=== PATIENT | female | born 1945 | race Caucasian/White ===

== ENCOUNTER 2022-02-04 09:00 | Inpatient (IN) ==
--- NOTE | 2022-01-30 13:01 | XRay Report ---
INDICATION: pre-op TECHNIQUE: PA and lateral upright chest x-ray COMPARISON: Previous examination dated 12/15/2021 FINDINGS: Lungs: Lungs are negative. No focal pulmonary parenchymal infiltrate or mass Heart, vascular: No significant cardiomegaly. Pulmonary vascularity is normal. No pulmonary edema or pulmonary congestion Mediastinum, mariana: No mediastinal widening. No hilar mass Pleura:No pleural fluid. No pleural-based mass or calcification Thoracic spine, ribs: No thoracic compression fracture. Ribs are negative. No fracture. No lytic lesion IMPRESSION: 1. Negative PA and lateral chest x-ray 2. No significant interval change since 12/15/2021 Interpreted and Authenticated by: Willam Pink 01/30/22
--- NOTE | 2022-01-30 14:37 | EKG ---
[facility] Test Date: 2022-01-30 Pat Name: Margo Fuller Department: RT Room: Gender: Female Supervisor Records Change: : 1945 Requested By: Tom Valladares Order Number: [id number] Reading MD: Kishore Kimble Measurements Intervals [place] Rate: 108 P: 36 FL: 123 QRS: 26 QRSD: 100 T: 45 QT: 342 QTc: 459 Interpretive Statements Sinus tachycardia Probable left atrial enlargement Minimal ST depression, anterolateral leads Electronically Signed On 01-30-2022 14:37:48 PDT by Kishore Kimble /[email or web address]/[id number]
[2022-01-30 16:48] LABS: ALT/SGPT 10 U/L (<40); AST/SGOT 14 U/L (<32); Albumin 3.5 gm/dL (3.2-5.2); Albumin/Globulin Ratio 0.9 (1.0-2.3); Alkaline Phosphatase 109 U/L (39-117); Bilirubin,Total 0.2 mg/dL (0.1-1.0); Blood Urea Nitrogen 10 mg/dL (8-23); Calcium 9.2 mg/dL (8.6-10.4); Carbon Dioxide 26 mmol/L (22-30); Chloride 104 mmol/L (96-108); Glomerular Filtration Rate 62; Glucose 125 mg/dL (70-105); INR 0.9 (0.9-1.1); Prothrombin Time 13.1 sec (11.9-14.5)
[2022-01-30 16:51] LABS: Basophils # (Auto) 0.08 K/mcL (0.00-0.30); Basophils % (Auto) 0.8 % (0.0-2.0); Eosinophils # (Auto) 0.18 K/mcL (0.00-0.70); Eosinophils % (Auto) 1.7 % (0.0-7.0); Hematocrit 46.8 % (34.1-44.9); Hemoglobin 14.8 g/dL (11.2-15.7); Lymphocytes # (Auto) 3.34 K/mcL (1.50-4.80); Lymphocytes % (Auto) 32.3 % (15.5-49.0); Mean Cell Volume 89.7 fL (80.0-100.0); Mean Corpuscular HGB Conc 31.6 g/dL (31.0-36.0); Mean Platelet Volume 10.3 fL (7.4-10.4); Monocytes # (Auto) 0.55 K/mcL (0.10-0.90); Monocytes % (Auto) 5.3 % (1.0-12.0); Neutrophils % (Auto) 59.5 % (38.0-78.0); Platelet Count 221 K/mcL (140-440); RBC 5.22 M/mcL (3.59-5.38); WBC 10.3 K/mcL (4.5-11.0)
[~2022-02-04 09:00] MED LIST: IPRATROPIUM/ALBUTEROL 3 ML AMPUL.NEB NEB PRN; LEVOFLOXACIN 750 MG/150 ML BAG IV SCH; SCOPOLAMINE 1 PATCH PATCH TOPICAL PRN; metroNIDAZOLE 500 MG/100 ML BAG IV SCH
[2022-02-04] MEDS ORDERED: KETAMINE 50 MG/ML Syringe (ANEST) IV ONE (11:48)
[2022-02-04] MEDS ORDERED: ROCURONIUM 10 MG/ML ML IV ONE (11:48)
[2022-02-04] MEDS ORDERED: PROPOFOL 200 MG/20 ML VIAL IV ONE (11:48)
[2022-02-04] MEDS ORDERED: LIDOCAINE W/EPI 2% 20 ML VIAL ONE (11:48)
[2022-02-04] MEDS ORDERED: GLYCOPYRROLATE 0.2 MG/ML VIAL IV ONE (11:48)
[2022-02-04] MEDS ORDERED: ONDANSETRON 4 MG/2 ML VIAL ONE (11:48)
[2022-02-04] MEDS ORDERED: SUGAMMADEX SODIUM 200 MG/2 ML VIAL IV ONE (11:48)
[2022-02-04] MEDS ORDERED: fentaNYL 100 MCG/2 ML VIAL IV ONE (11:48)
[2022-02-04] MEDS ORDERED: DEXAMETHASONE 10 MG/ML VIAL ONE (11:48)
[2022-02-04] MEDS ORDERED: LIDOCAINE HCL/PF 100 MG/5 ML SYRINGE IV ONE (11:48)
[2022-02-04] MEDS ORDERED: MAGNESIUM SULFATE 2 GM/50 ML BAG IV ONE (11:48)
[2022-02-04] MEDS ORDERED: ROPIVACAINE HCL/PF 30 ML VIAL IJ ONE (11:48)
[2022-02-04] MEDS ORDERED: ONDANSETRON 4 MG/2 ML VIAL IV PRN ×2 (14:52→15:22)
[2022-02-04] MEDS ORDERED: MEPERIDINE 50 MG/ML VIAL IM PRN (14:52)
[2022-02-04] MEDS ORDERED: PROMETHAZINE 25 MG/ML VIAL IM PRN (14:52)
[2022-02-04] MEDS ORDERED: METHOCARBAMOL 1,000 MG/10 ML VIAL IV PRN (14:52)
[2022-02-04] MEDS ORDERED: LACTATED RINGERS 250 ML IV PRN (14:52)
[2022-02-04] MEDS ORDERED: HYDROmorphone 0.5 MG/0.5 ML SYRINGE IV PRN (14:52)
[2022-02-04] MEDS ORDERED: morphine 2 MG/ML VIAL IV PRN (14:52)
[2022-02-04] MEDS ORDERED: METOPROLOL TARTRATE 5 MG/5 ML VIAL IV PRN (14:52)
[2022-02-04] MEDS ORDERED: PROMETHAZINE 25 MG/ML VIAL IV PRN (14:52)
[2022-02-04] MEDS ORDERED: IPRATROPIUM/ALBUTEROL 3 ML AMPUL.NEB NEB PRN (14:52)
[2022-02-04] MEDS ORDERED: ACETAMINOPHEN 1,000 MG/100 ML BAG IV ONE (14:52)
[2022-02-04] MEDS ORDERED: MEPERIDINE 25 MG/ML VIAL IV PRN (14:52)
[2022-02-04] MEDS ORDERED: NALOXONE HCL 0.4 MG/ML VIAL IV PRN (14:52)
[2022-02-04] MEDS ORDERED: LACTATED RINGERS 1,000 ML IV SCH (15:00)
--- NOTE | 2022-02-04 15:22 | Brief Operative Note ---
Brief Operative Note Date of procedure: 02/04/22 Pre-op diagnosis: diverticulitis with colovesicle fistula;bladder stones Post-op diagnosis: other (acute and chronic diverticulitis with colovesicle fistula; pelvic abscess with fecal contents;bladder stones;) Procedure: sigmoid colectomy with drainage of pelvic abscess;right salpingo-oophorectomy; sigmoid colostomy Grafts/Implants: No (renetta drain x2) Anesthesia: GETA Findings: major inflammation of most of sigmoid colon with residual abscess of pelvis and between colon and bladder; free residual stool in abscess pocket and in distal sigmoid and rectum; major acute infection of entire posterior wall of bladder but without direct involvement of full thickness into bladder severe inflammation of right tube and ovary in pelvic abscess colon prep was poor in spite of having a 2 day prep Complications: none Surgeon: Tom Valladares Estimated blood loss (cc): 150 Specimens Removed/Pathology: other (sigmoid colon ;right tube and ovary) Disposition: PACU
[2022-02-04] MEDS: fentaNYL 100 MCG/2 ML VIAL IV PRN ×4 (15:56→16:06)
[2022-02-04] MEDS: HYDROmorphone 1 MG/ML SYRINGE IV PRN ×3 (16:55→22:39)
[2022-02-04] MEDS: 0.9 % SODIUM CHLORIDE 1,000 ML IV SCH ×2 (16:55→22:45)
[2022-02-04] MEDS: metroNIDAZOLE 500 MG/100 ML BAG IV SCH (18:03)
[2022-02-04] MEDS: SENNOSIDES 1 TABLET PO SCH (20:02)
[2022-02-04] MEDS: CEFEPIME 2 GM VIAL IV SCH (20:02)
[2022-02-04] MEDS: 0.9 % SODIUM CHLORIDE 10 ML SYRINGE IV SCH (20:03)
[2022-02-05] MEDS: 0.9 % SODIUM CHLORIDE 1,000 ML IV SCH ×5 (02:13→22:20)
[2022-02-05] MEDS: HYDROmorphone 1 MG/ML SYRINGE IV PRN ×4 (04:45→19:12)
[2022-02-05] MEDS: CEFEPIME 2 GM VIAL IV SCH ×3 (05:08→20:34)
[2022-02-05] MEDS: metroNIDAZOLE 500 MG/100 ML BAG IV SCH ×3 (05:09→11:24)
[2022-02-05] MEDS: 0.9 % SODIUM CHLORIDE 10 ML SYRINGE IV SCH ×5 (05:10→21:56)
[2022-02-05 07:16] LABS: Basophils # (Auto) 0.02 K/mcL (0.00-0.30); Basophils % (Auto) 0.1 % (0.0-2.0); Eosinophils # (Auto) 0 K/mcL (0.00-0.70); Eosinophils % (Auto) 0 % (0.0-7.0); Hematocrit 39.5 % (34.1-44.9); Hemoglobin 12.7 g/dL (11.2-15.7); Lymphocytes % (Auto) 9.2 % (15.5-49.0); Mean Cell Volume 90.2 fL (80.0-100.0); Mean Corpuscular HGB Conc 32.2 g/dL (31.0-36.0); Mean Platelet Volume 10.4 fL (7.4-10.4); Monocytes # (Auto) 0.65 K/mcL (0.10-0.90); Monocytes % (Auto) 4.6 % (1.0-12.0); Neutrophils % (Auto) 85.9 % (38.0-78.0); Platelet Count 173 K/mcL (140-440); RBC 4.38 M/mcL (3.59-5.38); WBC 14.1 K/mcL (4.5-11.0)
[2022-02-05 07:30] LABS: ALT/SGPT 10 U/L (<40); AST/SGOT 32 U/L (<32); Albumin 3.1 gm/dL (3.2-5.2); Alkaline Phosphatase 70 U/L (39-117); Bilirubin,Direct < 0.2 mg/dL (0-0.3); Bilirubin,Total 0.4 mg/dL (0.1-1.0); Blood Urea Nitrogen 16 mg/dL (8-23); Calcium 8.1 mg/dL (8.6-10.4); Carbon Dioxide 23 mmol/L (22-30); Chloride 109 mmol/L (96-108); Globulin 3.2 gm/dL (2.2-3.7); Glomerular Filtration Rate 55; Glucose 154 mg/dL (70-105); Lactate Dehydrogenase 203 U/L (135-225); Phosphorous 3.8 mg/dL (2.5-4.5); Triglycerides 63 mg/dL (<150); Uric Acid 6.2 mg/dL (2.5-8.0)
[2022-02-05] MEDS ORDERED: KETOROLAC TROMETHAMINE 1 GTT BOTTLE BOTH EYES PRN (10:00)
--- NOTE | 2022-02-05 13:00 | General Surgery Progress Note ---
SUBJECTIVE Subjective Patient information: Note initiated : 02/05/22 at 12:58 pm Service Date, if different from initiated Date: [] Patient: Margo Fuller 77 y/o F admitted on 02/04/22 for Sigmoid Colectomy With Resection of Bladder. Chief Complaint: [] Principal diagnosis: Acute on chronic diverticulitis; diverticular abscess; colovesical fistula Interval history: Patient is status post sigmoid colectomy with drainage of pelvic abscess and colovesical abscess on yesterday. She has an end colostomy. Patient is doing well. Her pain is adequately controlled. She does not have any nausea. She has not had flatus so far. White blood count 14.1, hemoglobin 12.7, hematocrit 39.9. Constitutional Vitals: Vital Signs Temp Pulse Resp BP Pulse Ox O2 Del Method O2 Flow Rate 97.4 F 80 17 108/65 94 2 02/05/22 12:00 02/05/22 12:00 02/05/22 12:00 02/05/22 07:33 02/05/22 12:00 02/05/22 12:00 02/05/22 12:00 Period Temp Pulse Resp BP Sys/Caballero Pulse Ox O2 Del Method O2 Flow Rate Last 24 Hr 97.4 F-98.9 F 79-92 16-20 95-124/62-74 90-95 Nasal Cannula-Mariah m Air 0-6 Intake and Output 02/04/22 02/05/22 02/05/22 21:59 05:59 13:59 Intake Total 2720 1190 1100 Output Total 350 385 Balance 2370 805 1100 Weight 205 lb 5 oz Intake & Output: Intake & Output 02/04/22 02/05/22 02/05/22 21:59 05:59 13:59 Intake Total 2720 1190 1100 Output Total 350 385 Balance 2370 805 1100 Weight 205 lb 5 oz Intake: IV 200 1100 1100 Sodium Chloride 0.9% 1,000 ml @ 1000 1000 125 mls/hr IV .Q8H [facility] Rx#: [id number] Oral 120 90 IV - Manual Only 2400 Output: Gastric Drainage 300 NG/OG 300 Drainage 40 85 Right Abdomen LEONIDAS Drain 40 85 Urine Catheter Amount 210 Stool 0 Estimated Blood Loss 100 Other: Urine Appearance Cloudy Sediment Cloudy 3-way Urethral Cloudy Urine Color Yellow Dark Yellow Yellow Light Deloris 3-way Urethral Yellow Urine Odor Normal Neck Neck exam: Present full ROM and normal inspection Respiratory Respiratory exam: Present normal respiratory exam and CTAB Cardiovascular Cardiovascular exam: Present normal rate and rhythm, RRR, +S1 and +S2 GI/Abdominal GI/Abdominal exam: Present normal bowel sounds, soft and distended Additional comments: Incision looks good; LEONIDAS drain with bloody drainage; stoma is healthy and pink Extremities Exam Extremities exam: Present full ROM and neurovascular intact Neurological Exam Neurological exam: Present oriented X3; Absent motor sensory deficit Psychiatric Psychiatric exam: Present normal affect and normal mood A/P Assessment and plan (1) Enterovesical fistula: Status: Acute (2) Colovesical fistula: Status: Acute (3) Pelvic abscess: Status: Acute Plan Continue present therapy Continue antibiotic therapy Physical therapy for ambulation Check labs in the morning Time Spent With Patient Time: Total time spent is greater than 50% in coordination of care (as documented) at patient's floor/unit and/or counseling patient:
[2022-02-05] MEDS: SENNOSIDES 1 TABLET PO SCH (20:25)
[2022-02-05] MEDS: LORazepam 2 MG/ML VIAL IV SCH (20:34)
[2022-02-06] MEDS: 0.9 % SODIUM CHLORIDE 1,000 ML IV SCH ×5 (04:42→23:36)
[2022-02-06] MEDS: CEFEPIME 2 GM VIAL IV SCH ×3 (05:18→21:29)
[2022-02-06] MEDS: 0.9 % SODIUM CHLORIDE 10 ML SYRINGE IV SCH ×6 (05:20→21:30)
[2022-02-06] MEDS: HYDROmorphone 1 MG/ML SYRINGE IV PRN ×2 (07:37→20:00)
[2022-02-06 11:04] LABS: Basophils # (Auto) 0.04 K/mcL (0.00-0.30); Basophils % (Auto) 0.3 % (0.0-2.0); Eosinophils # (Auto) 0.01 K/mcL (0.00-0.70); Eosinophils % (Auto) 0.1 % (0.0-7.0); Hematocrit 38.5 % (34.1-44.9); Hemoglobin 11.8 g/dL (11.2-15.7); Lymphocytes % (Auto) 18.3 % (15.5-49.0); Mean Cell Volume 92.3 fL (80.0-100.0); Mean Corpuscular HGB Conc 30.6 g/dL (31.0-36.0); Mean Platelet Volume 10.4 fL (7.4-10.4); Monocytes # (Auto) 0.62 K/mcL (0.10-0.90); Monocytes % (Auto) 5.4 % (1.0-12.0); Neutrophils % (Auto) 75.6 % (38.0-78.0); Platelet Count 148 K/mcL (140-440); RBC 4.17 M/mcL (3.59-5.38); Red Cell Distribution Width 14.6 % (11.5-14.5); WBC 11.5 K/mcL (4.5-11.0)
[2022-02-06 11:40] LABS: ALT/SGPT 10 U/L (<40); AST/SGOT 40 U/L (<32); Albumin 2.8 gm/dL (3.2-5.2); Albumin/Globulin Ratio 0.8 (1.0-2.3); Alkaline Phosphatase 68 U/L (39-117); Bilirubin,Direct < 0.2 mg/dL (0-0.3); Bilirubin,Total 0.4 mg/dL (0.1-1.0); Blood Urea Nitrogen 11 mg/dL (8-23); Calcium 8.3 mg/dL (8.6-10.4); Carbon Dioxide 28 mmol/L (22-30); Chloride 112 mmol/L (96-108); Globulin 3.5 gm/dL (2.2-3.7); Glomerular Filtration Rate 72; Glucose 118 mg/dL (70-105); Lactate Dehydrogenase 192 U/L (135-225); Phosphorous 2.2 mg/dL (2.5-4.5); Triglycerides 88 mg/dL (<150); Uric Acid 5.4 mg/dL (2.5-8.0)
--- NOTE | 2022-02-06 14:04 | Operative Note ---
DATE OF OPERATION: 02/04/2022 DATE OF PROCEDURE: 02/04/2022 PREOPERATIVE DIAGNOSIS: Diverticulitis with colovesical fistula and bladder stones. POSTOPERATIVE DIAGNOSIS: Acute and chronic diverticulitis with colovesical fistula and pelvic abscess with fecal contents and bladder stones. PROCEDURE: Sigmoid colectomy with drainage of pelvic abscess; right salpingo-oophorectomy; sigmoid colostomy. SURGEON: Tom Valladares M.D. FINDINGS: Major inflammation of most of the sigmoid colon with residual abscess of the pelvis between the colon and the bladder and in the pelvis below this. There was free residual stool in the abscess pocket and in the distal sigmoid and rectum in spite of the fact that the patient had taken a 2-day bowel prep. There was major acute inflammation and infection of the entire posterior wall of the bladder. There was no direct fistulous connection through the full thickness into the bladder. There was severe inflammation of the right tube and ovary that was encased in the pelvic abscess. DESCRIPTION OF PROCEDURE: Under general anesthesia, the patient's abdomen was prepped and draped in a sterile field. Timeout procedure was carried out as per protocol. A midline incision was made starting immediately above the umbilicus and extending to the pubis. Incision extended through the subcutaneous tissue and into the peritoneum. There was no free drainage of pus. The most prominent finding was severe inflammation of most of the sigmoid colon. The colon appeared to be hard compatible with acute and chronic inflammation. There was dense infiltrative type tissue between the sigmoid colon and the posterior wall of the bladder. The inflammatory process extended to the apex of the bladder and the bladder was adherent to the peritoneum extending up to the level of the pubis. An inspection of the pelvis revealed it to be tightly encased in inflammatory reaction with inflammation extending down to the base of the bladder with a thickened wall of the bladder. Staying close to the colon, the wall of the colon was from the wall of the bladder using electrocautery. It was not amenable to blunt dissection or finger fractionation. While doing this dissection, I entered a moderate-sized abscess that contained a large solid particles of stool with some vegetable matter. This was suctioned and freed from the abscess cavity. Once I was into the abscess cavity, I stayed close to the colon and then was able to serially dissect the inflammatory process down to the base of the bladder. Because of potential for ureteral injury, I elected to do the lower aspect of the dissection with blunt finger fractionation. This was continued more into the space anterior to the rectum. There was a moderate-sized abscess in this area and it appeared to contain the right tube and ovary. This was copiously irrigated. The tube and ovary were bluntly dissected and were then transected using a TA 30 stapler. It was passed off as a separate specimen. Next, the mesocolon was dissected until I could find good soft bowel. This was done proximally until about the mid sigmoid area. At this level the bowel was divided using Contour stapler. The mesocolon was then serially dissected and it was then clamped and divided. The vessels were tied with 2-0 silk. This continued down to an area right at the peritoneal reflection. The rectum was then stapled using two rows of chloe, using the TA 60 stapler. The colon was divided between these two rows so that I did a complete closed resection, except for the fistula. Once this was done, the colon was inspected on the back table and there did not appear to be any mucosal infiltration or significant inflammation. All of the hard tissue was involved in the mesocolon and the wall of the bowel. There did not appear to be any neoplastic changes. Copious irrigation was carried out. Because of all the infection, it was elected not to open the bladder because there was no safe area to gain access and all of the areas that could be opened were infected and generally using absorbable suture, it was felt that this might not heal adequately and a bladder opening into the free peritoneum might develop, so it was elected not to violate the wall of the bladder further. The rectal stump was oversewn using running locking 2-0 Prolene. Further irrigation was carried out. Two LEONIDAS drains were placed, one in the pelvis anteriorly and another in the deep pelvis posteriorly to the rectum. They were brought out through separate incisions in the right lower quadrant. A point of the stoma was chosen in the right lateral abdomen. This was done closer to the umbilicus because she had a very large pannus, which was severely thickened and it was felt that would be foreshortened colon and when she would stand the stoma would be placed under severe stretch and would retract. The bowel was bluntly dissected up to the splenic flexure and this gave enough length for it to come through the abdominal wall. It was grasped with an Maverick clamp and pulled through the abdominal wall. The wall of the colon was then sutured to the peritoneum circumferentially using interrupted 3-0 silk. Further irrigation was carried out. The drains were inspected and was felt to be in an adequate position. We changed setups at this time. Sponge, needle, instrument, and blade counts for the major setup were deemed correct. The fascia was closed with running #1 Prolene. The subcutaneous fat was closed in two layers after copious irrigation. It was closed with a 2-0 Monocryl in two layers. Skin was closed with chloe. The incision was closed and then the stoma was matured. The wall of the bowel was sutured to the anterior rectus fascia using interrupted 2-0 silk. The end of the bowel was sutured to the dermis using running locking 2-0 Vicryl. The stoma was viable and was not under any excess tension. A Tegaderm dressing was placed over the incision and a stoma appliance was placed. Drains were covered with drain sponges and Tegaderm. The patient tolerated the procedure well. She was awakened and transferred to the postanesthetic care unit in satisfactory condition. LCS:malathi Job ID: [id number] Doc ID: [id number] Tom Valladares M.D.
[2022-02-06] MEDS: ACETAMINOPHEN 1,000 MG/100 ML BAG IV PRN (14:06)
[2022-02-06] MEDS: BENZOCAINE 1 SPRAY BOTTLE TOPICAL PRN ×2 (14:13→17:24)
[2022-02-06] MEDS: SENNOSIDES 1 TABLET PO SCH (21:29)
[2022-02-06] MEDS: LORazepam 2 MG/ML VIAL IV SCH (21:29)
[2022-02-07] MEDS: 0.9 % SODIUM CHLORIDE 10 ML SYRINGE IV SCH ×6 (05:06→21:17)
[2022-02-07] MEDS: CEFEPIME 2 GM VIAL IV SCH ×3 (05:07→21:17)
[2022-02-07] MEDS: 0.9 % SODIUM CHLORIDE 1,000 ML IV SCH ×2 (06:13→18:00)
[2022-02-07 06:38] LABS: Basophils # (Auto) 0.05 K/mcL (0.00-0.30); Basophils % (Auto) 0.5 % (0.0-2.0); Eosinophils # (Auto) 0.04 K/mcL (0.00-0.70); Eosinophils % (Auto) 0.4 % (0.0-7.0); Hematocrit 36.1 % (34.1-44.9); Hemoglobin 11.4 g/dL (11.2-15.7); Lymphocytes # (Auto) 2.32 K/mcL (1.50-4.80); Lymphocytes % (Auto) 24.8 % (15.5-49.0); Mean Corpuscular HGB Conc 31.6 g/dL (31.0-36.0); Mean Platelet Volume 10.9 fL (7.4-10.4); Monocytes # (Auto) 0.44 K/mcL (0.10-0.90); Monocytes % (Auto) 4.7 % (1.0-12.0); Platelet Count 135 K/mcL (140-440); RBC 4.01 M/mcL (3.59-5.38); WBC 9.4 K/mcL (4.5-11.0)
[2022-02-07] MEDS: BENZOCAINE 1 SPRAY BOTTLE TOPICAL PRN (07:11)
[2022-02-07 07:29] LABS: ALT/SGPT 10 U/L (<40); AST/SGOT 29 U/L (<32); Albumin 2.7 gm/dL (3.2-5.2); Albumin/Globulin Ratio 0.8 (1.0-2.3); Alkaline Phosphatase 66 U/L (39-117); Bilirubin,Direct < 0.2 mg/dL (0-0.3); Bilirubin,Total 0.4 mg/dL (0.1-1.0); Blood Urea Nitrogen 8 mg/dL (8-23); Calcium 8.2 mg/dL (8.6-10.4); Carbon Dioxide 25 mmol/L (22-30); Chloride 106 mmol/L (96-108); Globulin 3.5 gm/dL (2.2-3.7); Glomerular Filtration Rate 89; Glucose 80 mg/dL (70-105); Lactate Dehydrogenase 174 U/L (135-225); Phosphorous 1.9 mg/dL (2.5-4.5); Triglycerides 105 mg/dL (<150); Uric Acid 4.7 mg/dL (2.5-8.0)
[2022-02-07] MEDS: HYDROmorphone 1 MG/ML SYRINGE IV PRN ×2 (07:49→13:50)
--- NOTE | 2022-02-07 13:54 | General Surgery Progress Note ---
SUBJECTIVE Subjective Patient information: Note initiated : 02/07/22 at 1:51 pm Service Date, if different from initiated Date: [] Patient: Margo Fuller 77 y/o F admitted on 02/04/22 for Sigmoid Colectomy With Resection of Bladder. Chief Complaint: [] Principal diagnosis: Acute on chronic diverticulitis; diverticular abscess; colovesical fistula Interval history: Patient continues to do well. She denies any chest discomfort or shortness of breath. She has not had output through her stoma so for. Her pain is adequately controlled. White blood count 9.4, hemoglobin 11.4 hematocrit 36.1 potassium 3.6 BUN 8 creatinine 0.6 Constitutional Vitals: Vital Signs Temp Pulse Resp BP Pulse Ox O2 Del Method O2 Flow Rate 98.9 F 89 16 128/66 92 2 02/07/22 12:00 02/07/22 07:14 02/07/22 12:00 02/07/22 12:00 02/07/22 12:00 02/07/22 12:00 02/05/22 12:00 Period Temp Pulse Resp BP Sys/Caballero Pulse Ox O2 Del Method O2 Flow Rate Last 24 Hr 97.1 F-98.9 F 87-89 14-16 123-141/66-84 90-92 Room Air-Room Air Intake and Output 02/06/22 02/07/22 02/07/22 21:59 05:59 13:59 Intake Total 100 1200 Output Total 1100 1771 750 Balance -1000 -571 -750 Weight 209 lb 2 oz Intake & Output: Intake & Output 02/06/22 02/07/22 02/07/22 21:59 05:59 13:59 Intake Total 100 1200 Output Total 1100 1771 750 Balance -1000 -571 -750 Weight 209 lb 2 oz Intake: IV 100 1000 Sodium Chloride 0.9% 1,000 ml @ 1000 125 mls/hr IV .Q8H [facility] Rx#: [id number] Oral 200 Output: Gastric Drainage 650 300 NG/OG 650 300 Drainage 20 LEONIDAS #1 10 LEONIDAS #2 10 Urine Catheter Amount 1100 1100 450 Stool 1 Other: Urine Appearance Cloudy 3-way Urethral Clear Urine Color Yellow 3-way Urethral Yellow ENT ENT exam: Present normal external ear exam and normal oropharynx Neck Neck exam: Present normal inspection; Absent tenderness Respiratory Respiratory exam: Present normal respiratory exam and CTAB Cardiovascular Cardiovascular exam: Present normal rate and rhythm, +S1 and +S2; Absent JVD or RRR GI/Abdominal GI/Abdominal exam: Present normal bowel sounds and distended; Absent tenderness Extremities Exam Extremities exam: Present normal inspection and neurovascular intact Neurological Exam Neurological exam: Present oriented X3 and reflexes normal Psychiatric Psychiatric exam: Present normal affect and normal mood A/P Assessment and plan (1) Pelvic abscess: Status: Acute (2) Colovesical fistula: Status: Acute Plan Continue present therapy Add metoclopramide every 6 hours Time Spent With Patient Time: Total time spent is greater than 50% in coordination of care (as documented) at patient's floor/unit and/or counseling patient:
[2022-02-07] MEDS: METOCLOPRAMIDE 10 MG/2 ML VIAL IV SCH (16:51)
[2022-02-07] MEDS: SENNOSIDES 1 TABLET PO SCH (21:16)
[2022-02-07] MEDS: LORazepam 2 MG/ML VIAL IV SCH (21:16)
[2022-02-07] MEDS: ACETAMINOPHEN 1,000 MG/100 ML BAG IV PRN (21:46)
[2022-02-08] MEDS: 0.9 % SODIUM CHLORIDE 1,000 ML IV SCH ×3 (00:01→16:54)
[2022-02-08] MEDS: CEFEPIME 2 GM VIAL IV SCH ×3 (05:10→21:20)
[2022-02-08] MEDS: METOCLOPRAMIDE 10 MG/2 ML VIAL IV SCH ×5 (05:10→23:07)
[2022-02-08] MEDS: 0.9 % SODIUM CHLORIDE 10 ML SYRINGE IV SCH ×6 (05:10→21:22)
[2022-02-08 06:27] LABS: Basophils # (Auto) 0.06 K/mcL (0.00-0.30); Basophils % (Auto) 0.8 % (0.0-2.0); Eosinophils # (Auto) 0.16 K/mcL (0.00-0.70); Eosinophils % (Auto) 2.1 % (0.0-7.0); Hematocrit 35.7 % (34.1-44.9); Hemoglobin 11.6 g/dL (11.2-15.7); Lymphocytes # (Auto) 2.07 K/mcL (1.50-4.80); Mean Corpuscular HGB Conc 32.5 g/dL (31.0-36.0); Mean Platelet Volume 10.7 fL (7.4-10.4); Monocytes # (Auto) 0.38 K/mcL (0.10-0.90); Neutrophils % (Auto) 64.4 % (38.0-78.0); Platelet Count 152 K/mcL (140-440); RBC 4.01 M/mcL (3.59-5.38); Red Cell Distribution Width 13.6 % (11.5-14.5); WBC 7.7 K/mcL (4.5-11.0)
[2022-02-08 06:56] LABS: ALT/SGPT 8 U/L (<40); AST/SGOT 17 U/L (<32); Albumin 2.6 gm/dL (3.2-5.2); Albumin/Globulin Ratio 0.8 (1.0-2.3); Alkaline Phosphatase 73 U/L (39-117); Bilirubin,Direct < 0.2 mg/dL (0-0.3); Bilirubin,Total 0.4 mg/dL (0.1-1.0); Blood Urea Nitrogen 9 mg/dL (8-23); Calcium 8.2 mg/dL (8.6-10.4); Carbon Dioxide 26 mmol/L (22-30); Chloride 105 mmol/L (96-108); Globulin 3.4 gm/dL (2.2-3.7); Glomerular Filtration Rate 89; Glucose 82 mg/dL (70-105); Lactate Dehydrogenase 159 U/L (135-225); Phosphorous 2.3 mg/dL (2.5-4.5); Triglycerides 140 mg/dL (<150); Uric Acid 4.3 mg/dL (2.5-8.0)
[2022-02-08] MEDS: BENZOCAINE 1 SPRAY BOTTLE TOPICAL PRN ×3 (08:42→20:08)
[2022-02-08] MEDS: HYDROmorphone 1 MG/ML SYRINGE IV PRN (08:42)
--- NOTE | 2022-02-08 17:53 | General Surgery Progress Note ---
SUBJECTIVE Subjective Patient information: Note initiated : 02/08/22 at 5:50 pm Service Date, if different from initiated Date: [] Patient: Margo Fuller 77 y/o F admitted on 02/04/22 for Sigmoid Colectomy With Resection of Bladder. Chief Complaint: [] Principal diagnosis: Acute on chronic diverticulitis; diverticular abscess; colovesical fistula Interval history: Patient is continuing to improve. She has small amount of gas in her stoma appliance. White blood count 7.7, hemoglobin 9.8, hematocrit 35.7, potassium, BUN, creatinine Constitutional Vitals: Vital Signs Temp Pulse Resp BP Pulse Ox O2 Del Method O2 Flow Rate 98.2 F 85 16 134/75 92 2 02/08/22 16:00 02/08/22 16:00 02/08/22 16:00 02/08/22 16:00 02/08/22 16:00 02/08/22 16:00 02/05/22 12:00 Period Temp Pulse Resp BP Sys/Caballero Pulse Ox O2 Del Method O2 Flow Rate Last 24 Hr 96.5 F-98.4 F 74-85 14-77 121-151/62-82 90-93 Room Air-Room Air Intake and Output 02/08/22 02/08/22 02/08/22 05:59 13:59 21:59 Intake Total 330 1000 1000 Output Total 1445 1930 Balance -1115 1000 -930 Intake & Output: Intake & Output 02/08/22 02/08/22 02/08/22 05:59 13:59 21:59 Intake Total 330 1000 1000 Output Total 1445 1930 Balance -1115 1000 -930 Intake: IV 100 1000 1000 Sodium Chloride 0.9% 1,000 ml @ 1000 1000 125 mls/hr IV .Q8H [facility] Rx#: [id number] Oral 230 Tube Feeding 0 Output: Gastric Drainage 950 900 NG/OG 950 900 Drainage 20 30 LEONIDAS #1 10 15 LEONIDAS #2 10 15 Urine Catheter Amount 475 1000 Other: Urine Appearance Cloudy Sediment 3-way Urethral Cloudy Cloudy Sediment Sediment Urine Color Yellow 3-way Urethral Yellow Yellow Neck Neck exam: Present full ROM and normal inspection Respiratory Respiratory exam: Present normal respiratory exam and CTAB Cardiovascular Cardiovascular exam: Present normal rate and rhythm, RRR, +S1 and +S2 GI/Abdominal GI/Abdominal exam: Present normal bowel sounds, soft and distended (Mild distention); Absent tenderness Additional comments: Stoma is healthy Extremities Exam Extremities exam: Present normal inspection and neurovascular intact Neurological Exam Neurological exam: Present oriented X3 A/P Assessment and plan (1) Pelvic abscess: Status: Acute (2) Colovesical fistula: Status: Acute Plan Continue on present therapy Sepsis Sepsis Identified: No Time Spent With Patient Time: Total time spent is greater than 50% in coordination of care (as documented) at patient's floor/unit and/or counseling patient:
[2022-02-08] MEDS: ACETAMINOPHEN 1,000 MG/100 ML BAG IV PRN (19:40)
[2022-02-08] MEDS: SENNOSIDES 1 TABLET PO SCH (20:08)
[2022-02-08] MEDS: LORazepam 2 MG/ML VIAL IV SCH (20:08)
[2022-02-09] MEDS: 0.9 % SODIUM CHLORIDE 1,000 ML IV SCH ×3 (01:27→17:23)
[2022-02-09] MEDS: CEFEPIME 2 GM VIAL IV SCH ×3 (05:27→22:34)
[2022-02-09] MEDS: METOCLOPRAMIDE 10 MG/2 ML VIAL IV SCH ×3 (05:27→17:23)
[2022-02-09] MEDS: 0.9 % SODIUM CHLORIDE 10 ML SYRINGE IV SCH ×6 (05:28→22:34)
[2022-02-09 06:05] LABS: Basophils # (Auto) 0.05 K/mcL (0.00-0.30); Basophils % (Auto) 0.6 % (0.0-2.0); Eosinophils # (Auto) 0.21 K/mcL (0.00-0.70); Eosinophils % (Auto) 2.4 % (0.0-7.0); Hematocrit 37.6 % (34.1-44.9); Lymphocytes # (Auto) 2.35 K/mcL (1.50-4.80); Lymphocytes % (Auto) 26.3 % (15.5-49.0); Mean Cell Volume 88.9 fL (80.0-100.0); Mean Corpuscular HGB Conc 31.9 g/dL (31.0-36.0); Mean Platelet Volume 10.7 fL (7.4-10.4); Monocytes # (Auto) 0.54 K/mcL (0.10-0.90); Monocytes % (Auto) 6.1 % (1.0-12.0); Neutrophils % (Auto) 63.8 % (38.0-78.0); Platelet Count 161 K/mcL (140-440); RBC 4.23 M/mcL (3.59-5.38); Red Cell Distribution Width 13.5 % (11.5-14.5); WBC 8.9 K/mcL (4.5-11.0)
[2022-02-09 06:41] LABS: ALT/SGPT 7 U/L (<40); AST/SGOT 14 U/L (<32); Albumin 2.8 gm/dL (3.2-5.2); Albumin/Globulin Ratio 0.8 (1.0-2.3); Alkaline Phosphatase 76 U/L (39-117); Bilirubin,Direct < 0.2 mg/dL (0-0.3); Bilirubin,Total 0.4 mg/dL (0.1-1.0); Blood Urea Nitrogen 10 mg/dL (8-23); Calcium 8.3 mg/dL (8.6-10.4); Carbon Dioxide 26 mmol/L (22-30); Chloride 105 mmol/L (96-108); Globulin 3.5 gm/dL (2.2-3.7); Glomerular Filtration Rate 89; Glucose 76 mg/dL (70-105); Lactate Dehydrogenase 156 U/L (135-225); Phosphorous 2.3 mg/dL (2.5-4.5); Triglycerides 168 mg/dL (<150); Uric Acid 4.7 mg/dL (2.5-8.0)
[2022-02-09] MEDS: BENZOCAINE 1 SPRAY BOTTLE TOPICAL PRN (09:42)
[2022-02-09] MEDS: HYDROmorphone 1 MG/ML SYRINGE IV PRN (09:43)
--- NOTE | 2022-02-09 13:16 | General Surgery Progress Note ---
SUBJECTIVE Subjective Patient information: Note initiated : 02/09/22 at 1:12 pm Service Date, if different from initiated Date: [] Patient: Margo Fuller 77 y/o F admitted on 02/04/22 for Sigmoid Colectomy With Resection of Bladder. Chief Complaint: [] Principal diagnosis: Acute on chronic diverticulitis; diverticular abscess; colovesical fistula Interval history: Patient continues to improve. He has been afebrile. She still has bloody urine but urine. Abdominal pain is improved. Output via stoma is still decreased though she does pass some gas. White blood count 8.9, hemoglobin 12, hematocrit 37.6, potassium 3.5 BUN 10, creatinine 0.6 Constitutional Vitals: Vital Signs Temp Pulse Resp BP Pulse Ox O2 Del Method O2 Flow Rate 97.8 F 79 18 150/80 93 2 02/09/22 12:00 02/09/22 12:00 02/09/22 12:00 02/09/22 12:00 02/09/22 12:00 02/09/22 07:24 02/05/22 12:00 Period Temp Pulse Resp BP Sys/Caballero Pulse Ox O2 Del Method O2 Flow Rate Last 24 Hr 97.2 F-99.7 F 75-90 16-18 127-151/73-80 90-97 Room Air-Room Air Intake and Output 02/08/22 02/09/22 02/09/22 21:59 05:59 13:59 Intake Total 1100 1240 1000 Output Total 1930 1510 Balance -830 -270 1000 Weight 204 lb 6.4 oz Intake & Output: Intake & Output 02/08/22 02/09/22 02/09/22 21:59 05:59 13:59 Intake Total 1100 1240 1000 Output Total 1930 1510 Balance -830 -270 1000 Weight 204 lb 6.4 oz Intake: IV 1100 1000 1000 Sodium Chloride 0.9% 1,000 ml @ 1000 1000 1000 125 mls/hr IV .Q8H [facility] Rx#: [id number] Oral 240 Tube Feeding 0 0 Output: Gastric Drainage 900 540 NG/OG 900 540 Drainage 20 LEONIDAS #1 10 LEONIDAS #2 10 Drainage 30 LEONIDAS #1 15 LEONIDAS #2 15 Urine Catheter Amount 1000 550 Void Amount 400 Other: Urine Appearance Cloudy Cloudy Sediment 3-way Urethral Cloudy Cloudy Cloudy Sediment Urine Color Yellow Bright Yellow 3-way Urethral Yellow Yellow Yellow Neck Neck exam: Present normal inspection Respiratory Respiratory exam: Present normal respiratory exam and CTAB Cardiovascular Cardiovascular exam: Present normal rate and rhythm, +S1 and +S2; Absent JVD or RRR GI/Abdominal GI/Abdominal exam: Present normal bowel sounds and distended (Mild distention,); Absent soft Additional comments: Stoma is healthy and viable; incision looks good Extremities Exam Extremities exam: Present normal inspection and neurovascular intact Neurological Exam Neurological exam: Present oriented X3; Absent motor sensory deficit Psychiatric Psychiatric exam: Present normal affect and normal mood A/P Assessment and plan (1) Pelvic abscess: Status: Acute (2) Colovesical fistula: Status: Acute (3) UTI (urinary tract infection): Status: Acute Comment: Sent for [employer] Plan Discontinue nasogastric tube Milk of magnesia x4 doses Abdominal x-ray in the morning Time Spent With Patient Time: Total time spent is greater than 50% in coordination of care (as documented) at patient's floor/unit and/or counseling patient:
[2022-02-09] MEDS: MAGNESIUM HYDROXIDE 30 ML ORAL.SUSP PO SCH ×2 (15:53→20:15)
[2022-02-09] MEDS: SENNOSIDES 1 TABLET PO SCH (20:15)
[2022-02-09] MEDS: LORazepam 2 MG/ML VIAL IV SCH (20:16)
[2022-02-10] MEDS: MAGNESIUM HYDROXIDE 30 ML ORAL.SUSP PO SCH ×3 (00:10→08:21)
[2022-02-10] MEDS: METOCLOPRAMIDE 10 MG/2 ML VIAL IV SCH ×5 (00:10→23:55)
[2022-02-10] MEDS: 0.9 % SODIUM CHLORIDE 1,000 ML IV SCH ×7 (00:11→22:13)
[2022-02-10] MEDS: HYDROmorphone 1 MG/ML SYRINGE IV PRN ×3 (00:17→17:42)
[2022-02-10] MEDS: CEFEPIME 2 GM VIAL IV SCH ×3 (05:03→22:12)
[2022-02-10] MEDS: 0.9 % SODIUM CHLORIDE 10 ML SYRINGE IV SCH ×6 (05:04→22:13)
[2022-02-10 06:31] LABS: Basophils # (Auto) 0.08 K/mcL (0.00-0.30); Basophils % (Auto) 0.8 % (0.0-2.0); Eosinophils # (Auto) 0.25 K/mcL (0.00-0.70); Eosinophils % (Auto) 2.6 % (0.0-7.0); Hematocrit 36.3 % (34.1-44.9); Hemoglobin 11.7 g/dL (11.2-15.7); Lymphocytes # (Auto) 2.14 K/mcL (1.50-4.80); Lymphocytes % (Auto) 22.2 % (15.5-49.0); Mean Cell Volume 88.8 fL (80.0-100.0); Mean Corpuscular HGB Conc 32.2 g/dL (31.0-36.0); Mean Platelet Volume 10.8 fL (7.4-10.4); Monocytes % (Auto) 6.2 % (1.0-12.0); Neutrophils % (Auto) 67.1 % (38.0-78.0); Platelet Count 166 K/mcL (140-440); RBC 4.09 M/mcL (3.59-5.38); Red Cell Distribution Width 13.5 % (11.5-14.5); WBC 9.6 K/mcL (4.5-11.0)
--- NOTE | 2022-02-10 14:37 | General Surgery Progress Note ---
SUBJECTIVE Subjective Patient information: Note initiated : 02/10/22 at 2:33 pm Service Date, if different from initiated Date: [] Patient: Margo Fuller 77 y/o F admitted on 02/04/22 for Sigmoid Colectomy With Resection of Bladder. Chief Complaint: [] Principal diagnosis: Acute on chronic diverticulitis; diverticular abscess; colovesical fistula Interval history: Patient is doing well. She had good output through her stoma with over 500 cc of liquid. Her pain is controlled. White blood count 9.6, hemoglobin 11.7, hematocrit 36.3 Constitutional Vitals: Vital Signs Temp Pulse Resp BP Pulse Ox O2 Del Method O2 Flow Rate 98.3 F 76 20 139/71 94 2 02/10/22 12:00 02/10/22 12:00 02/10/22 12:00 02/10/22 12:00 02/10/22 12:00 02/10/22 12:00 02/05/22 12:00 Period Temp Pulse Resp BP Sys/Caballero Pulse Ox O2 Del Method O2 Flow Rate Last 24 Hr 97.8 F-98.9 F 74-87 16-20 126-151/69-79 92-94 Room Air-Room Air Intake and Output 02/10/22 02/10/22 02/10/22 05:59 13:59 21:59 Intake Total 1240 1330 Output Total 1120 400 Balance 120 930 Intake & Output: Intake & Output 02/10/22 02/10/22 02/10/22 05:59 13:59 21:59 Intake Total 1240 1330 Output Total 1120 400 Balance 120 930 Intake: IV 1000 1000 Sodium Chloride 0.9% 1,000 ml @ 1000 1000 125 mls/hr IV .Q8H [facility] Rx#: [id number] Oral 240 330 Output: Drainage 20 LEONIDAS #1 10 LEONIDAS #2 10 Urine Catheter Amount 600 Stool 500 400 Other: Meal Breakfast Percent of Meal Consumed 25% Feeding Ability Independent Urine Appearance 3-way Urethral Clear Urine Color Light Deloris 3-way Urethral Dark Yellow Urine Odor Strong Stool Consistency Liquid Watery ENT ENT exam: Present normal external ear exam and normal oropharynx Neck Neck exam: Present full ROM and normal inspection Respiratory Respiratory exam: Present normal respiratory exam and CTAB Cardiovascular Cardiovascular exam: Present normal rate and rhythm, RRR, +S1 and +S2; Absent JVD GI/Abdominal GI/Abdominal exam: Present normal bowel sounds and soft Additional comments: Stoma looks good Incision is healthy Extremities Exam Extremities exam: Present full ROM and neurovascular intact Neurological Exam Neurological exam: Present normal gait, oriented X3 and reflexes normal Psychiatric Psychiatric exam: Present normal affect and normal mood A/P Assessment and plan (1) Pelvic abscess: Status: Acute (2) Colovesical fistula: Status: Acute (3) Bladder stones: Status: Acute Sepsis Sepsis Identified: No Narrative A/P Narrative: Advance to GI soft diet Possible discharge home with [facility] tomorrow Time Spent With Patient Time: Total time spent is greater than 50% in coordination of care (as documented) at patient's floor/unit and/or counseling patient:
[2022-02-10] MEDS: SENNOSIDES 1 TABLET PO SCH (22:12)
[2022-02-10] MEDS: LORazepam 2 MG/ML VIAL IV SCH (22:12)
[2022-02-10] MEDS: ACETAMINOPHEN 1,000 MG/100 ML BAG IV PRN (23:58)
[2022-02-11] MEDS: 0.9 % SODIUM CHLORIDE 1,000 ML IV SCH ×3 (03:13→16:16)
[2022-02-11] MEDS: 0.9 % SODIUM CHLORIDE 10 ML SYRINGE IV SCH ×6 (05:23→20:48)
[2022-02-11] MEDS: CEFEPIME 2 GM VIAL IV SCH ×3 (05:23→20:48)
[2022-02-11] MEDS: METOCLOPRAMIDE 10 MG/2 ML VIAL IV SCH ×3 (05:23→17:48)
--- NOTE | 2022-02-11 11:56 | General Surgery Progress Note ---
SUBJECTIVE Subjective Patient information: Note initiated : 02/11/22 at 11:52 am Service Date, if different from initiated Date: [] Patient: Margo Fuller 77 y/o F admitted on 02/04/22 for Sigmoid Colectomy With Resection of Bladder. Chief Complaint: [] Principal diagnosis: Acute on chronic diverticulitis; diverticular abscess; colovesical fistula Interval history: Patient continues to do well. She has adequate stomal function and she is tolerating diet without difficulty. Her pain is controlled. Her urine is clear. We will wait for home health to be established prior to discharge. Tentative discharge will be tomorrow Constitutional Vitals: Vital Signs Temp Pulse Resp BP Pulse Ox O2 Del Method O2 Flow Rate 98.2 F 72 20 137/71 93 2 02/11/22 08:00 02/11/22 08:00 02/11/22 08:00 02/11/22 08:00 02/11/22 08:00 02/11/22 08:00 02/05/22 12:00 Period Temp Pulse Resp BP Sys/Caballero Pulse Ox O2 Del Method O2 Flow Rate Last 24 Hr 96.8 F-99.2 F 65-78 14-20 115-139/65-77 91-94 Room Air-Room Air Intake and Output 02/10/22 02/11/22 02/11/22 21:59 05:59 13:59 Intake Total 1680 1300 Output Total 1356 513 Balance 324 787 Weight 204 lb 14 oz Intake & Output: Intake & Output 02/10/22 02/11/22 02/11/22 21:59 05:59 13:59 Intake Total 1680 1300 Output Total 1356 513 Balance 324 787 Weight 204 lb 14 oz Intake: IV 1000 1100 Sodium Chloride 0.9% 1,000 ml @ 1000 1000 125 mls/hr IV .Q8H [facility] Rx#: [id number] Oral 680 200 Output: Drainage 6 13 LEONIDAS #1 3 3 LEONIDAS #2 3 10 Urine Catheter Amount 1000 500 Stool 350 Other: Meal Lunch Percent of Meal Consumed 100% Feeding Ability Assist with Tray Set Up Urine Appearance Sediment Clear 3-way Urethral Clear Urine Color Dark Deloris Light Deloris 3-way Urethral Dark Yellow Dark Yellow Dark Yellow Urine Odor Strong Stool Size Small Stool Color Brown Stool Consistency Liquid ENT ENT exam: Present mucous membranes moist and normal oropharynx Neck Neck exam: Present full ROM and normal inspection; Absent tenderness Respiratory Respiratory exam: Present normal respiratory exam and CTAB Cardiovascular Cardiovascular exam: Present normal rate and rhythm, RRR, +S1 and +S2; Absent JVD GI/Abdominal GI/Abdominal exam: Present normal bowel sounds, soft, distended (Mild distention without tympany) and tenderness (Incisional tenderness) Extremities Exam Extremities exam: Present full ROM, normal inspection and neurovascular intact Neurological Exam Neurological exam: Present normal gait, oriented X3 and reflexes normal; Absent motor sensory deficit Psychiatric Psychiatric exam: Present normal affect and normal mood A/P Assessment and plan (1) Pelvic abscess: Status: Acute (2) UTI (urinary tract infection): Status: Acute Comment: Sent for [facility] (3) HTN (hypertension): Status: Acute (4) Colovesical fistula: Status: Acute (5) Bladder stones: Status: Acute Plan Continue present therapy make arrangements for home health Probable discharge tomorrow Sepsis Sepsis Identified: No Time Spent With Patient Time: Total time spent is greater than 50% in coordination of care (as documented) at patient's floor/unit and/or counseling patient:
[2022-02-11] MEDS: HYDROmorphone 1 MG/ML SYRINGE IV PRN (12:44)
[2022-02-11] MEDS: LORazepam 2 MG/ML VIAL IV SCH (20:47)
[2022-02-11] MEDS: SENNOSIDES 1 TABLET PO SCH ×2 (20:48→21:01)
[2022-02-12] MEDS: METOCLOPRAMIDE 10 MG/2 ML VIAL IV SCH ×2 (00:27→05:27)
[2022-02-12] MEDS: 0.9 % SODIUM CHLORIDE 1,000 ML IV SCH (00:28)
[2022-02-12] MEDS: CEFEPIME 2 GM VIAL IV SCH (05:27)
[2022-02-12] MEDS: 0.9 % SODIUM CHLORIDE 10 ML SYRINGE IV SCH ×2 (05:28)
--- NOTE | 2022-02-12 12:38 | Discharge Summary ---
Discharge Provider Provider IMPORTANT FOLLOW-UP INFORMATION FOR PCP: Patient information: Note initiated : 02/12/22 at 12:34 pm Service Date, if different from initiated Date: [] Patient: Margo Fuller 77 y/o F admitted on 02/04/22 for Sigmoid Colectomy With Resection of Bladder. Chief Complaint: [] Date of admission: 02/04/22 09:25 Discharge date: 02/12/22 Primary care physician: Shaq Krishnamurthy MD Admitting clinician: Tom Valladares Attending physician on admission: Tom Valladares Attending physician on discharge: Tom Valladares Discharging clinician: Tom Valladares COURSE Hospital Course Hospital course: 77-year-old female with history of severe diverticulitis and that development of colovesical fistula. She was treated with long-term antibiotics and was finally explored on 05 February 2020. She was found to have a large abscess between the bladder and the colon with solid stool in the abscess pocket. She also had a pelvic abscess which involved her right tube and ovary. She underwent segmental colectomy with colostomy and right salpingo-oophorectomy. The posterior wall of the bladder was debrided but the bladder was not explored because of the extensive amount of pus and stool that was in the pelvis. Patient has been treated with IV antibiotics and has gradually improved. Her stoma is functioning well and she is becoming more familiar with it. She is stable for discharge home with home health. She will have follow-up in the office in 2 weeks. Discharge diagnosis: Acute and chronic diverticulitis Secondary discharge diagnosis: Colovesical fistula Pelvic abscess Reason for admission: Colovesical fistula Procedures: Sigmoid colectomy with Duffy's pouch and end colostomy Pertinent studies/significant findings: None Complications: None Time Spent with Patient Time attestation: Total time spent providing and/or coordinating discharge services: Time spent: Less than 30 minutes Physical Examination Vital Signs Vital signs: Temp Pulse Resp BP Pulse Ox O2 Del Method O2 Flow Rate 97.7 F 83 14 134/75 94 2 02/12/22 12:00 02/12/22 12:00 02/12/22 12:00 02/12/22 12:00 02/12/22 12:00 02/12/22 12:00 02/05/22 12:00 General physical appearance General physical exam: well developed, well nourished, no distress, moderate pain and obese Eyes Eye exam: PERRL and normal ocular movement ENT ENT exam: decreased hearing Head Head exam IM: Present atraumatic, normal inspection and normocephalic Neck Neck exam: no masses, no bruits, trachea midline, no lymphadenopathy and no venous distension Cardiovascular Cardiovascular exam IM: Present normal rate and rhythm, RRR, +S1 and +S2; Absent JVD Respiratory Respiratory exam: normal expansion, normal respiratory effort and clear to auscultation Abdomen Abdomen: Present tender (Moderate tenderness of incision) and surgical scars (Stoma is functioning adequately) Neurologic Neurologic: Present normal coordination and normal sensation Musculoskeletal Musculoskeletal: Present normal gait and normal posture Psychiatric Psychiatric: Present oriented to time, oriented to person, oriented to place, speech is normal and memory intact Discharge Plan Patient/Caregiver Discharge Instructions Activity: increase activity as tolerated Diet: Regular Diet Prescriptions: No Action phenazopyridine [Azo Urinary Pain Relief] 95 mg tablet 95 mg PO TIDP PRN (Reason: Pain) ciprofloxacin HCl 500 mg tablet 500 mg PO BID Qty: 30 1RF metronidazole 500 mg tablet 500 mg PO TID Qty: 60 1RF Prescription drug monitoring program results: PDMP not reviewed Follow Up Plan Follow up with: Tom Valladares MD [Physician] - (Office appointment in 2 weeks) Patient Disposition: Home Health Service Prognosis: Good Rehab Potential: Good I certify that the patient requires SNF services: No Overall status at discharge: patient is progressing back to baseline Discharge Orders: Discharge Order (Routine); Ordered 02/12/22 Ordered By: Tom Valladares Pending Pending Pending: Resuscitation Status Resuscitate (Full Code) Diet GI Soft/Transitional Start WedFeb 10 1643 Benzocaine (Benzocaine 1 Caldwell Bottle) 1 spray TOPICAL Q2HP PRN PRN Reason: pain Last Admin: 02/09/22 09:42 Dose: 1 spray Documented By: Admin: 02/08/22 20:08 Dose: 1 spray Documented By: Admin: 02/08/22 12:50 Dose: 1 spray Documented By: Admin: 02/08/22 08:42 Dose: 1 spray Documented By: Admin: 02/07/22 07:11 Dose: 1 spray Documented By: Admin: 02/06/22 17:24 Dose: 1 spray Documented By: Admin: 02/06/22 14:13 Dose: 1 spray Documented By: SRI Cefepime HCl (Cefepime 2 Gm Vial) 2 gm IV Q8H [facility]; Protocol Last Admin: 02/12/22 05:27 Dose: 2 gm Documented By: Admin: 02/11/22 20:48 Dose: 2 gm Documented By: Admin: 02/11/22 13:50 Dose: 2 gm Documented By: Admin: 02/11/22 05:23 Dose: 2 gm Documented By: Admin: 02/10/22 22:12 Dose: 2 gm Documented By: Admin: 02/10/22 14:01 Dose: 2 gm Documented By: Admin: 02/10/22 05:03 Dose: 2 gm Documented By: Admin: 02/09/22 22:34 Dose: 2 gm Documented By: Admin: 02/09/22 13:02 Dose: 2 gm Documented By: Admin: 02/09/22 05:27 Dose: 2 gm Documented By: Admin: 02/08/22 21:20 Dose: 2 gm Documented By: Admin: 02/08/22 12:51 Dose: 2 gm Documented By: Admin: 02/08/22 05:10 Dose: 2 gm Documented By: Admin: 02/07/22 21:17 Dose: 2 gm Documented By: Admin: 02/07/22 15:20 Dose: 2 gm Documented By: Admin: 02/07/22 05:07 Dose: 2 gm Documented By: Admin: 02/06/22 21:29 Dose: 2 gm Documented By: Admin: 02/06/22 13:42 Dose: 2 gm Documented By: Admin: 02/06/22 05:18 Dose: 2 gm Documented By: Admin: 02/05/22 20:34 Dose: 2 gm Documented By: Admin: 02/05/22 15:08 Dose: 2 gm Documented By: Admin: 02/05/22 05:08 Dose: 2 gm Documented By: Admin: 02/04/22 20:02 Dose: 2 gm Documented By: SALEEM Hydromorphone HCl (Hydromorphone 1 Mg/Ml Syringe) 1 mg IV Q2HP PRN; Protocol PRN Reason: Per Pain Protocol Last Admin: 02/11/22 12:44 Dose: 1 mg Documented By: Admin: 02/10/22 17:42 Dose: 1 mg Documented By: Admin: 02/10/22 08:55 Dose: 1 mg Documented By: Admin: 02/10/22 00:17 Dose: 1 mg Documented By: Admin: 02/09/22 09:43 Dose: 1 mg Documented By: Admin: 02/08/22 08:42 Dose: 1 mg Documented By: Admin: 02/07/22 13:50 Dose: 1 mg Documented By: Admin: 02/07/22 07:49 Dose: 1 mg Documented By: Admin: 02/06/22 20:00 Dose: 1 mg Documented By: Admin: 02/06/22 07:37 Dose: 1 mg Documented By: Admin: 02/05/22 19:12 Dose: 1 mg Documented By: Admin: 02/05/22 16:45 Dose: 1 mg Documented By: Admin: 02/05/22 11:22 Dose: 1 mg Documented By: Admin: 02/05/22 04:45 Dose: 1 mg Documented By: Admin: 02/04/22 22:39 Dose: 1 mg Documented By: Admin: 02/04/22 19:48 Dose: 1 mg Documented By: Admin: 02/04/22 16:55 Dose: 1 mg Documented By: [email or web address] Sodium Chloride (Sodium Chloride 0.9%) 1,000 mls @ 125 mls/hr IV .Q8H [facility] Last Admin: 02/12/22 00:28 Dose: Not Given Documented By: Admin: 02/11/22 16:16 Dose: Not Given Documented By: Admin: 02/11/22 16:14 Dose: Not Given Documented By: Admin: 02/11/22 03:13 Dose: 125 mls/hr Documented By: Infusion: 02/11/22 02:25 Dose: 125 mls/hr Documented By: Admin: 02/10/22 22:13 Dose: Not Given Documented By: Admin: 02/10/22 18:25 Dose: 125 mls/hr Documented By: Infusion: 02/10/22 17:49 Dose: 125 mls/hr Documented By: Admin: 02/10/22 17:26 Dose: Not Given Documented By: Admin: 02/10/22 09:49 Dose: 125 mls/hr Documented By: Infusion: 02/10/22 09:30 Dose: 125 mls/hr Documented By: Admin: 02/10/22 08:52 Dose: Not Given Documented By: Admin: 02/10/22 01:30 Dose: 125 mls/hr Documented By: Infusion: 02/10/22 01:30 Dose: 125 mls/hr Documented By: Admin: 02/10/22 00:11 Dose: Not Given Documented By: Admin: 02/09/22 17:23 Dose: 125 mls/hr Documented By: Infusion: 02/09/22 17:23 Dose: 125 mls/hr Documented By: Admin: 02/09/22 09:34 Dose: 125 mls/hr Documented By: Infusion: 02/09/22 09:27 Dose: 125 mls/hr Documented By: Admin: 02/09/22 01:27 Dose: 125 mls/hr Documented By: Infusion: 02/09/22 00:54 Dose: 125 mls/hr Documented By: Admin: 02/08/22 16:54 Dose: 125 mls/hr Documented By: Infusion: 02/08/22 16:54 Dose: 0 mls/hr Documented By: Admin: 02/08/22 08:21 Dose: 125 mls/hr Documented By: [email or web address] Infusion: 02/08/22 08:01 Dose: 125 mls/hr Documented By: [email or web address] Admin: 02/08/22 00:01 Dose: 125 mls/hr Documented By: Admin: 02/07/22 18:00 Dose: Not Given Documented By: Infusion: 02/07/22 14:26 Dose: 0 mls/hr Documented By: Admin: 02/07/22 06:13 Dose: 125 mls/hr Documented By: Infusion: 02/07/22 05:30 Dose: 125 mls/hr Documented By: Admin: 02/06/22 23:36 Dose: Not Given Documented By: Admin: 02/06/22 21:30 Dose: 125 mls/hr Documented By: Admin: 02/06/22 19:36 Dose: Not Given Documented By: Infusion: 02/06/22 12:26 Dose: 0 mls/hr Documented By: Admin: 02/06/22 09:47 Dose: Not Given Documented By: Admin: 02/06/22 04:42 Dose: 125 mls/hr Documented By: Infusion: 02/06/22 04:35 Dose: 125 mls/hr Documented By: Admin: 02/05/22 22:20 Dose: Not Given Documented By: Admin: 02/05/22 20:35 Dose: 125 mls/hr Documented By: Infusion: 02/05/22 19:26 Dose: 125 mls/hr Documented By: Admin: 02/05/22 15:46 Dose: Not Given Documented By: Admin: 02/05/22 11:26 Dose: 125 mls/hr Documented By: Infusion: 02/05/22 10:13 Dose: 125 mls/hr Documented By: Admin: 02/05/22 02:13 Dose: 125 mls/hr Documented By: Infusion: 02/05/22 00:55 Dose: 125 mls/hr Documented By: Admin: 02/04/22 22:45 Dose: Not Given Documented By: Admin: 02/04/22 16:55 Dose: 125 mls/hr Documented By: [email or web address] Acetaminophen (Ofirmev) 1,000 mg in 100 mls @ 200 mls/hr IV Q6HP PRN; Protocol PRN Reason: Pain Last Infusion: 02/11/22 00:35 Dose: 0 mls/hr Documented By: Admin: 02/10/22 23:58 Dose: 200 mls/hr Documented By: Infusion: 02/08/22 20:50 Dose: 0 mls/hr Documented By: Admin: 02/08/22 19:40 Dose: 200 mls/hr Documented By: Infusion: 02/07/22 22:31 Dose: 0 mls/hr Documented By: Admin: 02/07/22 21:46 Dose: 200 mls/hr Documented By: Infusion: 02/06/22 14:39 Dose: 0 mls/hr Documented By: Admin: 02/06/22 14:06 Dose: 200 mls/hr Documented By: SRI Ketorolac Tromethamine (Ketorolac Tromethamine 1 Gtt Bottle) 1 - 2 gtt BOTH EYES DAILYP PRN PRN Reason: Dry Eyes Last Admin: 02/07/22 15:21 Dose: 1 gtt Documented By: SRI Lorazepam (Lorazepam 2 Mg/Ml Vial) 1 mg IV QHS [facility] Last Admin: 02/11/22 20:47 Dose: 1 mg Documented By: Admin: 02/10/22 22:12 Dose: 1 mg Documented By: Admin: 02/09/22 20:16 Dose: 1 mg Documented By: Admin: 02/08/22 20:08 Dose: 1 mg Documented By: Admin: 02/07/22 21:16 Dose: 1 mg Documented By: Admin: 02/06/22 21:29 Dose: 1 mg Documented By: Admin: 02/05/22 20:34 Dose: 1 mg Documented By: [email or web address] Metoclopramide HCl (Metoclopramide 10 Mg/2 Ml Vial) 10 mg IV Q6 [facility] Last Admin: 02/12/22 05:27 Dose: 10 mg Documented By: Admin: 02/12/22 00:27 Dose: 10 mg Documented By: Admin: 02/11/22 17:48 Dose: 10 mg Documented By: Admin: 02/11/22 11:56 Dose: 10 mg Documented By: Admin: 02/11/22 05:23 Dose: 10 mg Documented By: Admin: 02/10/22 23:55 Dose: 10 mg Documented By: Admin: 02/10/22 17:42 Dose: 10 mg Documented By: Admin: 02/10/22 11:48 Dose: 10 mg Documented By: Admin: 02/10/22 05:03 Dose: 10 mg Documented By: Admin: 02/10/22 00:10 Dose: 10 mg Documented By: Admin: 02/09/22 17:23 Dose: 10 mg Documented By: Admin: 02/09/22 13:02 Dose: 10 mg Documented By: Admin: 02/09/22 05:27 Dose: 10 mg Documented By: Admin: 02/08/22 23:07 Dose: 10 mg Documented By: Admin: 02/08/22 16:54 Dose: 10 mg Documented By: Admin: 02/08/22 12:50 Dose: 10 mg Documented By: Admin: 02/08/22 05:10 Dose: 10 mg Documented By: Admin: 02/08/22 00:00 Dose: 10 mg Documented By: Admin: 02/07/22 16:51 Dose: 10 mg Documented By: SRI Senna (Sennosides 1 Tablet) 2 tab PO HS [facility] Last Admin: 02/11/22 21:01 Dose: 1 tab Documented By: Admin: 02/11/22 20:48 Dose: 1 tab Documented By: Admin: 02/10/22 22:12 Dose: 2 tab Documented By: Admin: 02/09/22 20:15 Dose: 2 tab Documented By: Admin: 02/08/22 20:08 Dose: 2 tab Documented By: Admin: 02/07/22 21:16 Dose: 2 tab Documented By: Admin: 02/06/22 21:29 Dose: 2 tab Documented By: Admin: 02/05/22 20:25 Dose: Not Given Documented By: BSAREGINALDOUL Admin: 02/04/22 20:02 Dose: Not Given Documented By: BSAAPOORVA Sodium Chloride (0.9 % Sodium Chloride 10 Ml Syringe) 10 ml IV Q8 [facility] Last Admin: 02/12/22 05:28 Dose: 10 ml Documented By: Admin: 02/11/22 20:48 Dose: 10 ml Documented By: Admin: 02/11/22 13:50 Dose: 10 ml Documented By: Admin: 02/11/22 05:23 Dose: Not Given Documented By: Admin: 02/10/22 22:12 Dose: Not Given Documented By: Admin: 02/10/22 14:01 Dose: Not Given Documented By: Admin: 02/10/22 05:04 Dose: Not Given Documented By: Admin: 02/09/22 20:16 Dose: 10 ml Documented By: Admin: 02/09/22 13:02 Dose: 10 ml Documented By: Admin: 02/09/22 05:28 Dose: Not Given Documented By: Admin: 02/08/22 21:20 Dose: 10 ml Documented By: Admin: 02/08/22 12:51 Dose: Not Given Documented By: Admin: 02/08/22 05:10 Dose: Not Given Documented By: Admin: 02/07/22 21:17 Dose: 10 ml Documented By: Admin: 02/07/22 13:50 Dose: 10 ml Documented By: DPIEHAlexia Admin: 02/07/22 05:06 Dose: 10 ml Documented By: Admin: 02/06/22 21:30 Dose: 10 ml Documented By: Admin: 02/06/22 13:42 Dose: Not Given Documented By: DPIEHAlexia Admin: 02/06/22 05:20 Dose: Not Given Documented By: Admin: 02/05/22 20:35 Dose: 10 ml Documented By: Admin: 02/05/22 15:45 Dose: Not Given Documented By: Admin: 02/05/22 05:10 Dose: 10 ml Documented By: Admin: 02/04/22 20:03 Dose: Not Given Documented By: SALEEM Sodium Chloride (0.9 % Sodium Chloride 10 Ml Syringe) 10 ml IV Q8 [facility] Last Admin: 02/12/22 05:28 Dose: Not Given Documented By: Admin: 02/11/22 20:48 Dose: Not Given Documented By: Admin: 02/11/22 16:15 Dose: 10 ml Documented By: Admin: 02/11/22 05:23 Dose: Not Given Documented By: Admin: 02/10/22 22:13 Dose: Not Given Documented By: Admin: 02/10/22 17:26 Dose: Not Given Documented By: Admin: 02/10/22 05:04 Dose: Not Given Documented By: Admin: 02/09/22 22:34 Dose: 10 ml Documented By: Admin: 02/09/22 13:03 Dose: Not Given Documented By: Admin: 02/09/22 05:28 Dose: Not Given Documented By: Admin: 02/08/22 21:22 Dose: Not Given Documented By: Admin: 02/08/22 12:51 Dose: Not Given Documented By: Admin: 02/08/22 05:10 Dose: Not Given Documented By: Admin: 02/07/22 21:17 Dose: Not Given Documented By: Admin: 02/07/22 13:50 Dose: Not Given Documented By: Admin: 02/07/22 05:07 Dose: Not Given Documented By: Admin: 02/06/22 21:30 Dose: Not Given Documented By: Admin: 02/06/22 13:42 Dose: Not Given Documented By: Admin: 02/06/22 05:48 Dose: Not Given Documented By: Admin: 02/05/22 21:56 Dose: Not Given Documented By: Admin: 02/05/22 16:05 Dose: 10 ml Documented By: RENÉE Shift Summary 02/12/22 04:02 Shift Summary by Billie Temple Primary Diagnosis: Diverticulitis, pelvic abscess Registration Status: IP-M/S 02/04/22 Date of Surgery (if applicable): Sigmoid colectomy with resection of bladder fistula, colostomy to LUQ(02/05/22, Dr. Valladares) Pertinent Medical Dx/Issue(s): HTN, hx of hyperkalemia, hypothyroidism, kidney stones, lumpectomy of the left breast Med management (antibiotics, diuretics, BP): [facility] Ativan 1 mg HS, [facility] Reglan, [facility] Maxipime Interventions: GI soft diet, pain management, pressure ulcer prevention education provided(pt refusing turns while asleep), incentive spirometer, abx therapy, colostomy care, up in hallway 02/11/22 ~1000 ft walk Skin/Wound Care: Midline with chloe, film dressing in place clean/dry/intact. 2 LEONIDAS sites to RLQ(site 1: 10 ml serosanguineous fluid out, site 2: 4 ml of serosanguineous fluid out; LUQ colostomy(beefy red/ output moderate amount brown liquid stool/flatus present in bag) Vital Signs with Trends: VSS, RA Pain management (acute vs. chronic): IV Ofirmev available prn, relaxation, reposition, ambulation Lab/Rad (abnormals, trends): Ca 8.3, Phosphorous 2.3, Albumin 2.8 Neuro/Mental Status: A/O x 4, pleasant/cooperative Cardiac Rhythm, Alarm Settings: S1/S2, regular Urinary Elimination Device: Resendiz(patent/draining) Urinary output greater than 30mL/hr? Yes Date of last BM: 02/10/22 Lines/Tubes: 20 gauge right wrist Activity: Up SBA with gait belt and FWW Discharge Plan (needs, disposition, etc): D/C home today with [facility]; Pt going home with JPs and resendiz according to clinic charge nurse Initialized on 02/12/22 04:02 - END OF NOTE
[2022-02-12] MEDS: ACETAMINOPHEN 1,000 MG/100 ML BAG IV PRN (15:07)
== END 2022-02-12 16:41 | disposition home health service (06) | DRG 329 ==
LOC: MEDSUR 09:25
PROVIDERS: ADMIT Family Medicine Adult Medicine; ATTEND Family Medicine Adult Medicine

== ENCOUNTER 2022-08-12 04:54 | Inpatient (IN) ==
--- NOTE | 2022-08-04 18:46 | XRay Report ---
HISTORY: Preop for colostomy takedown FINDINGS: The lungs are clear. The heart, mediastinum, mariana and pleura are normal. There has been no significant change since 01/30/22. IMPRESSION: Normal chest. Interpreted and Authenticated by: Dino Duran 08/04/22
[2022-08-04 19:19] LABS: Basophils # (Auto) 0.08 K/mcL (0.00-0.30); Basophils % (Auto) 0.8 % (0.0-2.0); Eosinophils # (Auto) 0.34 K/mcL (0.00-0.70); Eosinophils % (Auto) 3.6 % (0.0-7.0); Hematocrit 45.5 % (34.1-44.9); Hemoglobin 14.2 g/dL (11.2-15.7); Lymphocytes # (Auto) 3.82 K/mcL (1.50-4.80); Mean Cell Volume 90.6 fL (80.0-100.0); Mean Corpuscular HGB Conc 31.2 g/dL (31.0-36.0); Mean Platelet Volume 11.2 fL (8.8-12.5); Monocytes % (Auto) 5.2 % (1.0-12.0); Neutrophils % (Auto) 50.1 % (38.0-78.0); Platelet Count 185 K/mcL (140-440); RBC 5.02 M/mcL (3.59-5.38); Red Cell Distribution Width 13.3 % (11.5-14.5); WBC 9.6 K/mcL (4.5-11.0)
[2022-08-04 19:28] LABS: INR 0.9 (0.9-1.1); Partial Thromboplastin Time 36.6 sec (20.0-37.0); Prothrombin Time 12.4 sec (11.9-14.5)
[2022-08-04 19:30] LABS: ALT/SGPT 11 U/L (<40); AST/SGOT 15 U/L (<32); Albumin 4.2 gm/dL (3.2-5.2); Albumin/Globulin Ratio 1.2 (1.0-2.3); Alkaline Phosphatase 132 U/L (39-117); Bilirubin,Total 0.3 mg/dL (0.1-1.0); Blood Urea Nitrogen 17 mg/dL (8-23); Calcium 9.2 mg/dL (8.6-10.4); Carbon Dioxide 26 mmol/L (22-30); Chloride 102 mmol/L (96-108); Globulin 3.4 gm/dL (2.2-3.7); Glomerular Filtration Rate 54; Glucose 110 mg/dL (70-105)
--- NOTE | 2022-08-06 12:20 | EKG ---
[facility] Test Date: 2022-08-04 Pat Name: Margo Fuller Department: RT Room: Gender: Female Hoe Runner: : 1945 Requested By: Tom Valladares Order Number: [id number] Reading MD: Kishore Kimble Measurements Intervals Portia Rate: 84 P: 43 WI: 144 QRS: 12 QRSD: 93 T: 56 QT: 372 QTc: 436 Interpretive Statements Sinus rhythm Electronically Signed On 08-06-2022 12:19:43 PST by Kishore Kimble /store/[email or web address]/[id number]
[2022-08-12] MEDS ORDERED: SCOPOLAMINE 1 PATCH PATCH TOPICAL PRN (05:00)
[2022-08-12] MEDS ORDERED: IPRATROPIUM/ALBUTEROL 3 ML AMPUL.NEB NEB PRN ×2 (05:00→11:42)
[2022-08-12] MEDS ORDERED: metroNIDAZOLE 500 MG/100 ML BAG IV SCH (06:00)
[2022-08-12] MEDS ORDERED: CEFEPIME 2 GM VIAL IV SCH (06:00)
[2022-08-12] MEDS ORDERED: ePHEDrine 50 MG/5 ML SYRINGE (ANEST) IV ONE (07:38)
[2022-08-12] MEDS ORDERED: PROPOFOL 200 MG/20 ML VIAL IV ONE (07:38)
[2022-08-12] MEDS ORDERED: DEXAMETHASONE 10 MG/ML VIAL ONE (07:38)
[2022-08-12] MEDS ORDERED: GLYCOPYRROLATE 0.2 MG/ML VIAL IV ONE (07:38)
[2022-08-12] MEDS ORDERED: fentaNYL 100 MCG/2 ML VIAL IV ONE (07:38)
[2022-08-12] MEDS ORDERED: MIDAZOLAM 2 MG/2 ML VIAL ONE (07:38)
[2022-08-12] MEDS ORDERED: PHENYLephrine 1 MG/10 ML SYRINGE (ANEST) ONE (07:38)
[2022-08-12] MEDS ORDERED: LIDOCAINE HCL/PF 100 MG/5 ML SYRINGE IV ONE (07:38)
[2022-08-12] MEDS ORDERED: HYDROmorphone* 2 MG/ML VIAL ONE (07:38)
[2022-08-12] MEDS ORDERED: NEOSTIGMINE 1 MG/ML VIAL ONE (07:38)
[2022-08-12] MEDS ORDERED: ROCURONIUM 10 MG/ML ML IV ONE (07:38)
[2022-08-12] MEDS ORDERED: ONDANSETRON 4 MG/2 ML VIAL ONE (07:38)
[2022-08-12] MEDS ORDERED: MEPERIDINE 25 MG/ML VIAL IV PRN (11:42)
[2022-08-12] MEDS ORDERED: ONDANSETRON 4 MG/2 ML VIAL IV PRN (11:42)
[2022-08-12] MEDS ORDERED: fentaNYL 100 MCG/2 ML VIAL IV PRN (11:42)
[2022-08-12] MEDS ORDERED: ACETAMINOPHEN 1,000 MG/100 ML BAG IV ONE (11:42)
[2022-08-12] MEDS ORDERED: HYDROmorphone 0.5 MG/0.5 ML SYRINGE IV PRN (11:42)
[2022-08-12] MEDS ORDERED: PROMETHAZINE 25 MG/ML VIAL IV PRN (12:43)
--- NOTE | 2022-08-12 13:48 | Brief Operative Note ---
Brief Operative Note Date of procedure: 08/12/22 Pre-op diagnosis: Colostomy status Post-op diagnosis: other (Colostomy takedown; subacute pelvic inflammation; extensive intra-abdominal adhesions) Procedure: Colostomy Takedown Grafts/Implants: No Anesthesia: GETA Findings: Extensive severe adhesions of the peritoneal cavity subacute inflammation of the pelvis with intact rectal stump; no evidence of purulence Complications: none Surgeon: Tom Valladares Estimated blood loss (cc): 50 Specimens Removed/Pathology: other (Colostomy stoma) Condition: stable Disposition: PACU
[2022-08-12] MEDS: 0.9 % SODIUM CHLORIDE 10 ML SYRINGE IV SCH ×2 (14:36→20:02)
[2022-08-12] MEDS: 0.9 % SODIUM CHLORIDE 1,000 ML IV SCH ×3 (14:47→23:32)
[2022-08-12] MEDS: CEFEPIME 2 GM VIAL IV SCH ×2 (14:48→22:02)
[2022-08-12] MEDS: ACETAMINOPHEN 1,000 MG/100 ML BAG IV SCH ×2 (14:48→19:53)
[2022-08-12] MEDS: HYDROmorphone 1 MG/ML SYRINGE IV PRN ×2 (14:50→19:56)
[2022-08-12] MEDS: metroNIDAZOLE 500 MG/100 ML BAG IV SCH ×3 (15:24→23:32)
[2022-08-12] MEDS: LIDOCAINE PATCH TOPICAL SCH (17:52)
[2022-08-13] MEDS: ACETAMINOPHEN 1,000 MG/100 ML BAG IV SCH ×3 (00:53→19:16)
[2022-08-13] MEDS: 0.9 % SODIUM CHLORIDE 1,000 ML IV SCH ×3 (03:04→19:17)
[2022-08-13] MEDS: 0.9 % SODIUM CHLORIDE 10 ML SYRINGE IV SCH ×3 (04:11→20:31)
[2022-08-13] MEDS: HYDROmorphone 1 MG/ML SYRINGE IV PRN ×3 (04:30→17:56)
[2022-08-13] MEDS: CEFEPIME 2 GM VIAL IV SCH ×3 (05:37→21:38)
[2022-08-13] MEDS: metroNIDAZOLE 500 MG/100 ML BAG IV SCH ×4 (05:40→23:36)
[2022-08-13 06:48] LABS: Basophils # (Auto) 0.02 K/mcL (0.00-0.30); Basophils % (Auto) 0.2 % (0.0-2.0); Eosinophils # (Auto) 0 K/mcL (0.00-0.70); Eosinophils % (Auto) 0 % (0.0-7.0); Hematocrit 36.7 % (34.1-44.9); Hemoglobin 11.6 g/dL (11.2-15.7); Lymphocytes # (Auto) 1.94 K/mcL (1.50-4.80); Lymphocytes % (Auto) 15.9 % (15.5-49.0); Mean Cell Volume 90.4 fL (80.0-100.0); Mean Corpuscular HGB Conc 31.6 g/dL (31.0-36.0); Mean Platelet Volume 10.8 fL (8.8-12.5); Monocytes # (Auto) 0.89 K/mcL (0.10-0.90); Monocytes % (Auto) 7.3 % (1.0-12.0); Neutrophils % (Auto) 76.3 % (38.0-78.0); Platelet Count 150 K/mcL (140-440); RBC 4.06 M/mcL (3.59-5.38); Red Cell Distribution Width 13.2 % (11.5-14.5); WBC 12.2 K/mcL (4.5-11.0)
[2022-08-13 07:46] LABS: ALT/SGPT 12 U/L (<40); AST/SGOT 24 U/L (<32); Albumin 3.3 gm/dL (3.2-5.2); Albumin/Globulin Ratio 1.1 (1.0-2.3); Alkaline Phosphatase 78 U/L (39-117); Bilirubin,Direct < 0.2 mg/dL (0-0.3); Bilirubin,Total 0.5 mg/dL (0.1-1.0); Blood Urea Nitrogen 19 mg/dL (8-23); Carbon Dioxide 28 mmol/L (22-30); Chloride 106 mmol/L (96-108); Glomerular Filtration Rate 54; Glucose 137 mg/dL (70-105); Lactate Dehydrogenase 196 U/L (135-225); Phosphorous 3.8 mg/dL (2.5-4.5); Triglycerides 97 mg/dL (<150); Uric Acid 4.9 mg/dL (2.5-8.0)
[2022-08-13] MEDS: LIDOCAINE PATCH TOPICAL SCH (10:27)
--- NOTE | 2022-08-13 11:46 | General Surgery Progress Note ---
SUBJECTIVE Subjective Patient information: Note initiated : 08/13/22 at 11:42 am Service Date, if different from initiated Date: [] Patient: Margo Fuller 77 y/o F admitted on 08/12/22 for Colostomy Takedown. Chief Complaint: [] Principal diagnosis: Postop colostomy takedown Interval history: Patient is doing very well. Her pain is controlled. She does not have any nausea. She has not had flatus or bowel movement. White blood count 12.2, hemoglobin 11.6, hematocrit 36.7. Potassium BUN and creatinine are normal Constitutional Vitals: Vital Signs Temp Pulse Resp BP Pulse Ox O2 Del Method O2 Flow Rate 98.0 F 83 14 97/60 98 Nasal Cannula 2 08/13/22 04:20 08/13/22 08:00 08/13/22 08:00 08/13/22 08:00 08/13/22 08:00 08/13/22 08:00 08/13/22 08:00 Period Temp Pulse Resp BP Sys/Caballero Pulse Ox O2 Del Method O2 Flow Rate Last 24 Hr 97.0 F-98.5 F 76-98 11-17 96-136/47-92 88-98 Nasal Cannula- Room Air 2-8 Intake and Output 08/12/22 08/13/22 08/13/22 19:59 03:59 11:59 Intake Total 3175 1520 320 Output Total 690 785 Balance 2485 1520 -465 Weight 233 lb 9.6 oz Intake & Output: Intake & Output 08/12/22 08/13/22 08/13/22 19:59 03:59 11:59 Intake Total 3175 1520 320 Output Total 690 785 Balance 2485 1520 -465 Weight 233 lb 9.6 oz Intake: IV 200 1400 200 Sodium Chloride 0.9% 1,000 ml @ 1000 125 mls/hr IV .Q8H [facility] Rx#: [id number] Oral 50 120 120 IV - Manual Only 2925 Output: Gastric Drainage 0 350 Right Nare 0 350 Drainage 90 10 Left Abdomen 90 10 Urine Catheter Amount 600 425 Other: Urine Appearance Clear Clear Cloudy Uretheral (Cameron) Clear Clear Urine Color Dark Yellow Light Deloris Dark Yellow Uretheral (Cameron) Dark Yellow Light Deloris Urine Odor Normal Normal Uretheral (Cameron) Normal ENT ENT exam: Present normal exam and normal oropharynx Neck Neck exam: Present normal inspection; Absent tenderness Respiratory Respiratory exam: Present normal respiratory exam and CTAB Cardiovascular Cardiovascular exam: Present normal rate and rhythm, RRR, +S1 and +S2; Absent JVD GI/Abdominal GI/Abdominal exam: Present normal bowel sounds and soft Additional comments: Incision is unremarkable Extremities Exam Extremities exam: Present normal inspection and neurovascular intact Neurological Exam Neurological exam: Present oriented X3; Absent motor sensory deficit Psychiatric Psychiatric exam: Present normal affect and normal mood A/P Assessment and plan (1) Colostomy status: Status: Acute Plan Patient will be continued on present therapy Time Spent With Patient Time: Total time spent is greater than 50% in coordination of care (as documented) at patient's floor/unit and/or counseling patient:
[2022-08-13] MEDS: ONDANSETRON 4 MG/2 ML VIAL IV PRN (13:09)
[2022-08-14] MEDS: ACETAMINOPHEN 1,000 MG/100 ML BAG IV SCH ×4 (01:08→17:22)
[2022-08-14] MEDS: HYDROmorphone 1 MG/ML SYRINGE IV PRN ×2 (01:12→13:25)
[2022-08-14] MEDS: CEFEPIME 2 GM VIAL IV SCH ×3 (05:17→21:11)
[2022-08-14] MEDS: metroNIDAZOLE 500 MG/100 ML BAG IV SCH ×4 (05:17→23:23)
[2022-08-14] MEDS: 0.9 % SODIUM CHLORIDE 10 ML SYRINGE IV SCH ×3 (06:29→21:11)
[2022-08-14] MEDS: 0.9 % SODIUM CHLORIDE 1,000 ML IV SCH ×3 (09:54→23:22)
[2022-08-14] MEDS: LIDOCAINE PATCH TOPICAL SCH (09:55)
--- NOTE | 2022-08-14 13:01 | General Surgery Progress Note ---
SUBJECTIVE Subjective Patient information: Note initiated : 08/14/22 at 12:59 pm Service Date, if different from initiated Date: [] Patient: Margo Fuller 77 y/o F admitted on 08/12/22 for Colostomy Takedown. Chief Complaint: [] Principal diagnosis: Postop colostomy takedown Interval history: Patient is doing well. She has no complaints. Her pain is well controlled. She denies nausea. She has some abdominal distention but has not had flatus. LEONIDAS drainage is serosanguineous Constitutional Vitals: Vital Signs Temp Pulse Resp BP Pulse Ox O2 Del Method O2 Flow Rate 98.6 F 85 20 122/75 95 Room Air 0 08/14/22 12:00 08/14/22 03:46 08/14/22 12:00 08/14/22 12:00 08/14/22 12:00 08/14/22 12:00 08/13/22 19:26 Period Temp Pulse Resp BP Sys/Caballero Pulse Ox O2 Del Method O2 Flow Rate Last 24 Hr 97.9 F-99 F 85-99 16-20 101-122/48-90 84-95 Room Air-Room Air 0 Intake and Output 08/14/22 08/14/22 08/14/22 03:59 11:59 19:59 Intake Total 1500 200 100 Output Total 800 725 Balance 700 -525 100 Weight 221 lb 3 oz Intake & Output: Intake & Output 08/14/22 08/14/22 08/14/22 03:59 11:59 19:59 Intake Total 1500 200 100 Output Total 800 725 Balance 700 -525 100 Weight 221 lb 3 oz Intake: IV 1200 200 100 Sodium Chloride 0.9% 1,000 ml @ 1000 125 mls/hr IV .Q8H [facility] Rx#: [id number] Oral 300 Output: Gastric Drainage 575 475 Right Nare 575 475 Void Amount 225 250 ENT ENT exam: Present normal exam and normal oropharynx Neck Neck exam: Present normal inspection; Absent tenderness Respiratory Respiratory exam: Present normal respiratory exam and CTAB Cardiovascular Cardiovascular exam: Present normal rate and rhythm, RRR, +S1 and +S2; Absent JVD GI/Abdominal GI/Abdominal exam: Present normal bowel sounds and soft Additional comments: Incision is unremarkable Extremities Exam Extremities exam: Present normal inspection and neurovascular intact Neurological Exam Neurological exam: Present oriented X3; Absent motor sensory deficit Psychiatric Psychiatric exam: Present normal affect and normal mood A/P Assessment and plan (1) Colostomy status: Status: Acute Plan Check CBC and inpatient panel 2 view abdominal x-ray in the morning Time Spent With Patient Time: Total time spent is greater than 50% in coordination of care (as documented) at patient's floor/unit and/or counseling patient:
[2022-08-14] MEDS: METOCLOPRAMIDE 10 MG/2 ML VIAL IV SCH ×2 (17:22→23:23)
[2022-08-15] MEDS: ACETAMINOPHEN 1,000 MG/100 ML BAG IV SCH ×4 (00:25→17:35)
[2022-08-15] MEDS: ONDANSETRON 4 MG/2 ML VIAL IV PRN (05:01)
[2022-08-15] MEDS: metroNIDAZOLE 500 MG/100 ML BAG IV SCH ×4 (05:01→23:32)
[2022-08-15] MEDS: METOCLOPRAMIDE 10 MG/2 ML VIAL IV SCH ×4 (05:45→23:33)
[2022-08-15] MEDS: 0.9 % SODIUM CHLORIDE 1,000 ML IV SCH ×2 (05:55→11:42)
[2022-08-15] MEDS: CEFEPIME 2 GM VIAL IV SCH ×3 (06:03→21:42)
[2022-08-15] MEDS: 0.9 % SODIUM CHLORIDE 10 ML SYRINGE IV SCH ×3 (06:07→21:42)
[2022-08-15 07:26] LABS: ALT/SGPT 9 U/L (<40); AST/SGOT 23 U/L (<32); Albumin 3.1 gm/dL (3.2-5.2); Albumin/Globulin Ratio 0.9 (1.0-2.3); Alkaline Phosphatase 87 U/L (39-117); Bilirubin,Direct < 0.2 mg/dL (0-0.3); Bilirubin,Total 0.2 mg/dL (0.1-1.0); Blood Urea Nitrogen 13 mg/dL (8-23); Calcium 8.5 mg/dL (8.6-10.4); Carbon Dioxide 26 mmol/L (22-30); Chloride 110 mmol/L (96-108); Globulin 3.3 gm/dL (2.2-3.7); Glomerular Filtration Rate 84; Glucose 128 mg/dL (70-105); Lactate Dehydrogenase 247 U/L (135-225); Phosphorous 2.1 mg/dL (2.5-4.5); Triglycerides 137 mg/dL (<150); Uric Acid 4.3 mg/dL (2.5-8.0)
[2022-08-15] MEDS: LIDOCAINE PATCH TOPICAL SCH (09:19)
--- NOTE | 2022-08-15 11:57 | General Surgery Progress Note ---
SUBJECTIVE Subjective Patient information: Note initiated : 08/15/22 at 11:54 am Service Date, if different from initiated Date: [] Patient: aMrgo Fuller 77 y/o F admitted on 08/12/22 for Colostomy Takedown. Chief Complaint: [] Principal diagnosis: Postop colostomy takedown Interval history: Patient is doing well. She has had some passage of flatus. Her pain is controlled. She denies nausea or vomiting. NG output has decreased Constitutional Vitals: Vital Signs Temp Pulse Resp BP Pulse Ox O2 Del Method O2 Flow Rate 98.2 F 78 18 161/77 90 Room Air 0 08/15/22 11:50 08/15/22 11:50 08/15/22 11:50 08/15/22 11:50 08/15/22 11:50 08/15/22 11:50 08/13/22 19:26 Period Temp Pulse Resp BP Sys/Caballero Pulse Ox O2 Del Method O2 Flow Rate Last 24 Hr 98.1 F-99 F 75-88 14-20 122-161/67-99 90-96 Room Air-Room Air Intake and Output 08/14/22 08/15/22 08/15/22 19:59 03:59 11:59 Intake Total 2573 495 5055 Output Total 189 061 0231 Balance 545 225 100 Weight 225 lb 1.6 oz Intake & Output: Intake & Output 08/14/22 08/15/22 08/15/22 19:59 03:59 11:59 Intake Total 0315 262 0765 Output Total 787 679 5602 Balance 545 225 100 Weight 225 lb 1.6 oz Intake: IV 7940 282 4855 Sodium Chloride 0.9% 1,000 ml @ 1000 1000 125 mls/hr IV .Q8H [facility] Rx#: [id number] Oral 500 Output: Gastric Drainage 400 550 Right Nare 400 550 Drainage 30 Left Abdomen 30 Void Amount 425 475 550 Other: Urine Appearance Clear Clear Clear Urine Color Light Deloris Yellow Yellow Urine Odor Normal Neck Neck exam: Present normal inspection Respiratory Respiratory exam: Present normal respiratory exam and CTAB Cardiovascular Cardiovascular exam: Present normal rate and rhythm, RRR, +S1 and +S2; Absent JVD GI/Abdominal GI/Abdominal exam: Present normal bowel sounds, soft and tenderness (Moderate incisional tenderness); Absent distended Extremities Exam Extremities exam: Present normal inspection and neurovascular intact Neurological Exam Neurological exam: Present oriented X3 and reflexes normal; Absent motor sensory deficit Psychiatric Psychiatric exam: Present normal affect and normal mood A/P Assessment and plan (1) Colostomy status: Status: Acute Plan Continue present therapy Probable nasogastric tube in the morning Time Spent With Patient Time: Total time spent is greater than 50% in coordination of care (as documented) at patient's floor/unit and/or counseling patient:
--- NOTE | 2022-08-15 12:31 | XRay Report ---
CLINICAL INFORMATION: FOR F/U OF ILEUS COMPARISON: 02/14/2022 plain film. Abdomen and pelvic CT 07/03/2022 FINDINGS: The stool gas pattern is unremarkable. A thin 2.6 cm length metallic foreign body overlies the right L1 paraspinous region-likely a needle fragment. NG tube overlies the gastric fundus. A 5 cm staghorn calculus dominates the right renal pelvis mid inferior calyces as before. Surgical drain overlies the false pelvis. No free air or soft tissue mass. IMPRESSION: 1. 2.6 cm thin metallic foreign body in the right L1 spinous process region which is likely a needle fragment. This was seen in retrospect on CT six weeks ago (07/03/2022). The needle is located in the retroduodenal bulb fat with the tip extending near the portal vein. 2. 5 cm staghorn calculus filling the right renal pelvis mid inferior calyces-unchanged. Interpreted and Authenticated by: Willam Good 08/15/22
[2022-08-15] MEDS: PANTOPRAZOLE 40 MG VIAL IV SCH (17:34)
[2022-08-16] MEDS: ACETAMINOPHEN 1,000 MG/100 ML BAG IV SCH ×5 (00:38→23:21)
[2022-08-16] MEDS: 0.9 % SODIUM CHLORIDE 1,000 ML IV SCH ×3 (02:04→12:05)
[2022-08-16] MEDS: metroNIDAZOLE 500 MG/100 ML BAG IV SCH ×3 (05:05→17:23)
[2022-08-16] MEDS: METOCLOPRAMIDE 10 MG/2 ML VIAL IV SCH ×4 (06:03→23:21)
[2022-08-16] MEDS: CEFEPIME 2 GM VIAL IV SCH ×3 (06:03→21:31)
[2022-08-16] MEDS: 0.9 % SODIUM CHLORIDE 10 ML SYRINGE IV SCH ×3 (06:10→21:32)
[2022-08-16 07:17] LABS: Basophils # (Auto) 0.08 K/mcL (0.00-0.30); Basophils % (Auto) 0.7 % (0.0-2.0); Eosinophils # (Auto) 0.06 K/mcL (0.00-0.70); Eosinophils % (Auto) 0.6 % (0.0-7.0); Hematocrit 36.4 % (34.1-44.9); Hemoglobin 10.8 g/dL (11.2-15.7); Lymphocytes # (Auto) 2.41 K/mcL (1.50-4.80); Lymphocytes % (Auto) 22.5 % (15.5-49.0); Mean Cell Volume 94.5 fL (80.0-100.0); Mean Corpuscular HGB Conc 29.7 g/dL (31.0-36.0); Mean Platelet Volume 10.6 fL (8.8-12.5); Monocytes # (Auto) 0.54 K/mcL (0.10-0.90); Neutrophils % (Auto) 67.8 % (38.0-78.0); Platelet Count 192 K/mcL (140-440); RBC 3.85 M/mcL (3.59-5.38); Red Cell Distribution Width 13.6 % (11.5-14.5); WBC 10.7 K/mcL (4.5-11.0)
[2022-08-16 07:46] LABS: ALT/SGPT 8 U/L (<40); AST/SGOT 17 U/L (<32); Albumin 3.2 gm/dL (3.2-5.2); Albumin/Globulin Ratio 0.9 (1.0-2.3); Alkaline Phosphatase 78 U/L (39-117); Bilirubin,Direct < 0.2 mg/dL (0-0.3); Bilirubin,Total 0.2 mg/dL (0.1-1.0); Blood Urea Nitrogen 16 mg/dL (8-23); Calcium 8.7 mg/dL (8.6-10.4); Carbon Dioxide 26 mmol/L (22-30); Chloride 112 mmol/L (96-108); Globulin 3.4 gm/dL (2.2-3.7); Glomerular Filtration Rate 71; Glucose 106 mg/dL (70-105); Lactate Dehydrogenase 232 U/L (135-225); Triglycerides 130 mg/dL (<150); Uric Acid 4.4 mg/dL (2.5-8.0)
[2022-08-16] MEDS: PANTOPRAZOLE 40 MG VIAL IV SCH ×2 (08:03→17:23)
[2022-08-16] MEDS: LIDOCAINE PATCH TOPICAL SCH (09:55)
--- NOTE | 2022-08-16 13:17 | General Surgery Progress Note ---
SUBJECTIVE Subjective Patient information: Note initiated : 08/16/22 at 1:16 pm Service Date, if different from initiated Date: [] Patient: Margo Fuller 77 y/o F admitted on 08/12/22 for Colostomy Takedown. Chief Complaint: [] Principal diagnosis: Postop colostomy takedown Interval history: Patient is doing well. She has been afebrile and denies nausea. She has had multiple small bowel movements during the night and today. She denies abdominal discomfort. White blood count 10.7, hemoglobin 10.8, hematocrit 36.4 and. Potassium BUN and creatinine are normal. Serum phosphorus is down and will be replaced. Constitutional Vitals: Vital Signs Temp Pulse Resp BP Pulse Ox O2 Del Method O2 Flow Rate 98.1 F 81 18 143/78 90 Room Air 1 08/16/22 12:00 08/16/22 12:00 08/16/22 12:00 08/16/22 12:00 08/16/22 12:00 08/16/22 12:00 08/16/22 04:28 Period Temp Pulse Resp BP Sys/Caballero Pulse Ox O2 Del Method O2 Flow Rate Last 24 Hr 97.5 F-98.6 F 72-82 18-18 122-148/69-89 87-95 Nasal Cannula- Room Air 1-1 Intake and Output 08/16/22 08/16/22 08/16/22 03:59 11:59 19:59 Intake Total 200 1470 100 Output Total 575 165 100 Balance -375 1305 0 Intake & Output: Intake & Output 08/16/22 08/16/22 08/16/22 03:59 11:59 19:59 Intake Total 200 1470 100 Output Total 575 165 100 Balance -375 1305 0 Intake: IV 200 1200 100 Sodium Chloride 0.9% 1,000 ml @ 1000 125 mls/hr IV .Q8H [facility] Rx#: [id number] Oral 210 GI Tube Flush 60 Output: Gastric Drainage 200 50 Right Nare 200 50 Drainage 15 Left Abdomen 15 Void Amount 325 100 100 Urine/Stool Mix 50 Other: Urine Appearance Clear Clear Clear Urine Color Yellow Dark Yellow Dark Yellow Urine Odor Fecal Normal Stool Size Smear Small Small Stool Color Brown Brown Brown Yellow Yellow Stool Consistency Soft Soft Formed # Bowel Movements 1 1 ENT ENT exam: Present mucous membranes moist, normal external ear exam and normal oropharynx Neck Neck exam: Present full ROM and normal inspection Respiratory Respiratory exam: Present normal respiratory exam and CTAB Cardiovascular Cardiovascular exam: Present normal rate and rhythm, RRR, +S1 and +S2; Absent JVD GI/Abdominal GI/Abdominal exam: Present normal bowel sounds; Absent distended Extremities Exam Extremities exam: Present normal inspection and neurovascular intact; Absent tenderness Neurological Exam Neurological exam: Present oriented X3 and reflexes normal Psychiatric Psychiatric exam: Present normal affect and normal mood A/P Assessment and plan (1) Colostomy status: Status: Acute (2) Acute diverticulitis of intestine: Status: Acute Plan Discontinue nasogastric tube Full liquid diet Time Spent With Patient Time: Total time spent is greater than 50% in coordination of care (as documented) at patient's floor/unit and/or counseling patient:
[2022-08-16] MEDS: NEUTRA PHOS 1 PACKET PO SCH (21:29)
[2022-08-17] MEDS: METOCLOPRAMIDE 10 MG/2 ML VIAL IV SCH ×4 (05:04→23:04)
[2022-08-17] MEDS: ACETAMINOPHEN 1,000 MG/100 ML BAG IV SCH ×4 (05:05→23:04)
[2022-08-17] MEDS: CEFEPIME 2 GM VIAL IV SCH ×3 (05:05→22:47)
[2022-08-17] MEDS: 0.9 % SODIUM CHLORIDE 10 ML SYRINGE IV SCH ×3 (05:05→22:49)
[2022-08-17] MEDS: metroNIDAZOLE 500 MG/100 ML BAG IV SCH ×4 (05:38→17:12)
[2022-08-17] MEDS: 0.9 % SODIUM CHLORIDE 1,000 ML IV SCH ×3 (06:07→12:08)
[2022-08-17 07:13] LABS: Basophils # (Auto) 0.12 K/mcL (0.00-0.30); Basophils % (Auto) 1.1 % (0.0-2.0); Eosinophils # (Auto) 0.16 K/mcL (0.00-0.70); Eosinophils % (Auto) 1.4 % (0.0-7.0); Hematocrit 37.8 % (34.1-44.9); Hemoglobin 11.2 g/dL (11.2-15.7); Lymphocytes # (Auto) 2.45 K/mcL (1.50-4.80); Lymphocytes % (Auto) 21.7 % (15.5-49.0); Mean Cell Volume 95.2 fL (80.0-100.0); Mean Corpuscular HGB Conc 29.6 g/dL (31.0-36.0); Mean Platelet Volume 10.7 fL (8.8-12.5); Monocytes # (Auto) 0.65 K/mcL (0.10-0.90); Monocytes % (Auto) 5.8 % (1.0-12.0); Neutrophils % (Auto) 65.2 % (38.0-78.0); Platelet Count 215 K/mcL (140-440); RBC 3.97 M/mcL (3.59-5.38); Red Cell Distribution Width 13.7 % (11.5-14.5); WBC 11.3 K/mcL (4.5-11.0)
[2022-08-17] MEDS: PANTOPRAZOLE 40 MG VIAL IV SCH ×2 (07:57→17:12)
[2022-08-17 08:17] LABS: ALT/SGPT 9 U/L (<40); AST/SGOT 13 U/L (<32); Albumin 3.3 gm/dL (3.2-5.2); Alkaline Phosphatase 82 U/L (39-117); Bilirubin,Direct < 0.2 mg/dL (0-0.3); Bilirubin,Total 0.3 mg/dL (0.1-1.0); Blood Urea Nitrogen 15 mg/dL (8-23); Calcium 8.3 mg/dL (8.6-10.4); Carbon Dioxide 25 mmol/L (22-30); Chloride 109 mmol/L (96-108); Globulin 3.3 gm/dL (2.2-3.7); Glomerular Filtration Rate 84; Glucose 121 mg/dL (70-105); Lactate Dehydrogenase 260 U/L (135-225); Phosphorous 2.4 mg/dL (2.5-4.5); Triglycerides 128 mg/dL (<150); Uric Acid 3.5 mg/dL (2.5-8.0)
[2022-08-17] MEDS: LIDOCAINE PATCH TOPICAL SCH (09:03)
[2022-08-17] MEDS: NEUTRA PHOS 1 PACKET PO SCH ×2 (09:03→20:08)
--- NOTE | 2022-08-17 15:18 | General Surgery Progress Note ---
SUBJECTIVE Subjective Patient information: Note initiated : 08/17/22 at 3:13 pm Service Date, if different from initiated Date: [] Patient: Margo Fuller 77 y/o F admitted on 08/12/22 for Colostomy Takedown. Chief Complaint: [] Principal diagnosis: Postop colostomy takedown Interval history: Patient continues to do well. patient has had multiple bowel movements and is passing flatus. She has no complaints. Constitutional Vitals: Vital Signs Temp Pulse Resp BP Pulse Ox O2 Del Method O2 Flow Rate 98.5 F 82 16 159/87 90 Nasal Cannula 1 08/17/22 11:39 08/17/22 11:39 08/17/22 11:39 08/17/22 11:39 08/17/22 11:39 08/17/22 11:39 08/17/22 11:39 Period Temp Pulse Resp BP Sys/Caballero Pulse Ox O2 Del Method O2 Flow Rate Last 24 Hr 97 F-98.5 F 68-83 16-20 137-162/72-90 90-93 Nasal Cannula-Room Air 1-1 Intake and Output 08/17/22 08/17/22 08/17/22 03:59 11:59 19:59 Intake Total 2220 1200 100 Output Total 355 750 Balance 1865 450 100 Intake & Output: Intake & Output 08/17/22 08/17/22 08/17/22 03:59 11:59 19:59 Intake Total 2220 1200 100 Output Total 355 750 Balance 1865 450 100 Intake: IV 1200 1200 100 Sodium Chloride 0.9% 1,000 ml @ 1000 1000 125 mls/hr IV .Q8H [facility] Rx#: [id number] Oral 1020 Output: Drainage 30 Left Abdomen 30 Void Amount 400 Urine/Stool Mix 325 350 Other: Meal Breakfast Percent of Meal Consumed 100% Feeding Ability Independent Urine Color Yellow Stool Size Moderate Smear Small Stool Color Brown Brown Brown Yellow Yellow Stool Consistency Loose Soft Soft # Voids 1 # Bowel Movements 1 1 Respiratory Respiratory exam: Present normal respiratory exam and CTAB Cardiovascular Cardiovascular exam: Present normal rate and rhythm, RRR, +S1 and +S2; Absent gallop or JVD GI/Abdominal GI/Abdominal exam: Present normal bowel sounds and tenderness; Absent distended Extremities Exam Extremities exam: Present full ROM, normal inspection and neurovascular intact Neurological Exam Neurological exam: Present oriented X3 and reflexes normal; Absent motor sensory deficit Psychiatric Psychiatric exam: Present normal affect A/P Assessment and plan (1) Colostomy status: Status: Acute Plan Regular diet Saline lock IV 2 view abdominal x-ray Sepsis Sepsis Identified: No Time Spent With Patient Time: Total time spent is greater than 50% in coordination of care (as documented) at patient's floor/unit and/or counseling patient:
[2022-08-18] MEDS: metroNIDAZOLE 500 MG/100 ML BAG IV SCH ×3 (00:06→11:59)
[2022-08-18] MEDS: CEFEPIME 2 GM VIAL IV SCH ×2 (05:21→14:34)
[2022-08-18] MEDS: METOCLOPRAMIDE 10 MG/2 ML VIAL IV SCH ×2 (05:22→11:59)
[2022-08-18] MEDS: ACETAMINOPHEN 1,000 MG/100 ML BAG IV SCH ×2 (05:22→13:23)
[2022-08-18] MEDS: 0.9 % SODIUM CHLORIDE 10 ML SYRINGE IV SCH ×2 (05:29→14:34)
[2022-08-18 06:44] LABS: Basophils # (Auto) 0.13 K/mcL (0.00-0.30); Basophils % (Auto) 1.6 % (0.0-2.0); Eosinophils # (Auto) 0.21 K/mcL (0.00-0.70); Eosinophils % (Auto) 2.6 % (0.0-7.0); Hematocrit 36.1 % (34.1-44.9); Hemoglobin 11.2 g/dL (11.2-15.7); Lymphocytes # (Auto) 1.78 K/mcL (1.50-4.80); Lymphocytes % (Auto) 21.6 % (15.5-49.0); Mean Cell Volume 93.8 fL (80.0-100.0); Mean Platelet Volume 10.6 fL (8.8-12.5); Monocytes # (Auto) 0.49 K/mcL (0.10-0.90); Neutrophils % (Auto) 62.6 % (38.0-78.0); Platelet Count 177 K/mcL (140-440); RBC 3.85 M/mcL (3.59-5.38); Red Cell Distribution Width 13.7 % (11.5-14.5); WBC 8.2 K/mcL (4.5-11.0)
[2022-08-18 07:33] LABS: ALT/SGPT 7 U/L (<40); AST/SGOT 11 U/L (<32); Albumin 3.1 gm/dL (3.2-5.2); Alkaline Phosphatase 77 U/L (39-117); Bilirubin,Direct < 0.2 mg/dL (0-0.3); Bilirubin,Total 0.3 mg/dL (0.1-1.0); Blood Urea Nitrogen 11 mg/dL (8-23); Calcium 8.2 mg/dL (8.6-10.4); Carbon Dioxide 28 mmol/L (22-30); Chloride 104 mmol/L (96-108); Glomerular Filtration Rate 84; Glucose 116 mg/dL (70-105); Lactate Dehydrogenase 267 U/L (135-225); Phosphorous 2.8 mg/dL (2.5-4.5); Triglycerides 149 mg/dL (<150); Uric Acid 2.5 mg/dL (2.5-8.0)
[2022-08-18] MEDS: PANTOPRAZOLE 40 MG VIAL IV SCH (08:01)
[2022-08-18] MEDS: NEUTRA PHOS 1 PACKET PO SCH (08:02)
[2022-08-18] MEDS: LIDOCAINE PATCH TOPICAL SCH (09:56)
--- NOTE | 2022-08-18 10:21 | XRay Report ---
CLINICAL INFORMATION: FOR F/U OF ILEUS COMPARISON: None. FINDINGS: The stool gas pattern is unremarkable. 2.6 cm metallic foreign body right L2 paraspinous region is unchanged in position. This is likely a needle fragment. Large staghorn calculus filling the mid inferior calyces right kidney again noted. IMPRESSION: No acute disease. Ileus resolved. Other chronic findings as described Interpreted and Authenticated by: Willam Good 08/18/22
--- NOTE | 2022-08-18 14:56 | Discharge Summary ---
Discharge Provider Provider IMPORTANT FOLLOW-UP INFORMATION FOR PCP: Patient information: Note initiated : 08/18/22 at 2:53 pm Service Date, if different from initiated Date: [] Patient: Margo Fuller 77 y/o F admitted on 08/12/22 for Colostomy Takedown. Chief Complaint: [] Date of admission: 08/12/22 04:54 Discharge date: 08/18/22 Primary care physician: Shaq Krishnamurthy MD Admitting clinician: Tom Valladares Attending physician on admission: Tom Valladares Attending physician on discharge: Tom Valladares Discharging clinician: Tom Valladares COURSE Hospital Course Hospital course: 77-year-old female who was admitted after colostomy takedown on 12 August 2022. She had extensive adhesive disease during the surgery which required a lot of dissection. Her anastomosis proceeded uneventfully and the rectal stump was marginal but viable. She has progressed very well and is now having multiple bowel movements per day. Her abdominal x-rays are unremarkable. She has serosanguineous fluid in her pelvic drain. Patient has been afebrile and her white count is normal. She has minimal abdominal discomfort. She is tolerating diet and is ready for discharge home Discharge diagnosis: Colostomy status Secondary discharge diagnosis: History of diverticulitis History of enterovesical fistula Hypertension Reason for admission: Postoperative care Procedures: Laparotomy with colostomy takedown Pertinent studies/significant findings: None Complications: None Time Spent with Patient Time attestation: Total time spent providing and/or coordinating discharge services: Time spent: Less than 30 minutes Physical Examination Vital Signs Vital signs: Temp Pulse Resp BP Pulse Ox O2 Del Method O2 Flow Rate 97.9 F 70 18 146/78 96 Room Air 1 08/18/22 11:58 08/18/22 11:58 08/18/22 11:58 08/18/22 11:58 08/18/22 11:58 08/18/22 11:58 08/18/22 04:10 General physical appearance General physical exam: well developed, well nourished, no distress, no pain and obese Eyes Eye exam: PERRL and normal ocular movement ENT ENT exam: normal mucosa, no hearing loss and no congestion Head Head exam IM: Present atraumatic, normal inspection and normocephalic Neck Neck exam: no masses and no bruits Cardiovascular Cardiovascular exam IM: Present normal rate and rhythm, RRR, +S1 and +S2; Absent JVD Respiratory Respiratory exam: normal expansion, normal respiratory effort and clear to auscultation Abdomen Abdomen: Present soft, non tender, bowel sounds (Normal bowel sounds) and surgical scars (Surgical incisions are healing without difficulty or evidence of infection) Integumentary Integumentary: Present no rash, no growths and no abnormal pigmentation Neurologic Neurologic: Present normal coordination and normal sensation Musculoskeletal Musculoskeletal: Present normal gait and normal posture Psychiatric Psychiatric: Present oriented to time, oriented to person, oriented to place, speech is normal and memory intact Discharge Plan Patient/Caregiver Discharge Instructions Activity: increase activity as tolerated Diet: Regular Diet Prescriptions: No Action peg 3350-electrolytes [Golytely] 236-22.74-6.74 -5.86 gram recon soln 240 ml PO Q10M Qty: 4000 0RF (DME) ostomy supplies Misc See Rx Instructions .Route Qty: 20 12RF Rx Instructions: pancho - 2 piece promethazine 25 mg tablet 25 mg PO Q6H PRN (Reason: nausea and vomiting) Qty: 30 1RF sennosides [Senna Laxative] 8.6 mg tablet 8.6 mg PO BID PRN (Reason: constipation) Qty: 60 0RF acetaminophen 500 mg Tablet 1,000 mg PO BID Follow Up Plan Follow up with: Tom Valladares MD [Physician] - 08/27/22 10:45 am Patient Disposition: Home, Self-Care Prognosis: Good Rehab Potential: Good I certify that the patient requires SNF services: No Overall status at discharge: patient is progressing back to baseline Discharge Orders: Discharge Order (Routine); Ordered 08/18/22 Ordered By: Tom Valladares Pending Pending Pending: Resuscitation Status Resuscitate (Full Code) Diet Regular Diet Start WedAug 17 1503 Cefepime HCl (Cefepime 2 Gm Vial) 2 gm IV Q8H GAVIOTA Last Admin: 08/18/22 14:34 Dose: 2 gm Documented By: Admin: 08/18/22 05:21 Dose: 2 gm Documented By: Admin: 08/17/22 22:47 Dose: 2 gm Documented By: Admin: 08/17/22 15:11 Dose: 2 gm Documented By: Admin: 08/17/22 05:05 Dose: 2 gm Documented By: Admin: 08/16/22 21:31 Dose: 2 gm Documented By: Admin: 08/16/22 14:41 Dose: 2 gm Documented By: Admin: 08/16/22 06:03 Dose: 2 gm Documented By: Admin: 08/15/22 21:42 Dose: 2 gm Documented By: Admin: 08/15/22 14:07 Dose: 2 gm Documented By: Admin: 08/15/22 06:03 Dose: 2 gm Documented By: Admin: 08/14/22 21:11 Dose: 2 gm Documented By: Admin: 08/14/22 14:17 Dose: 2 gm Documented By: Admin: 08/14/22 05:17 Dose: 2 gm Documented By: JUAN ANTONIO Admin: 08/13/22 21:38 Dose: 2 gm Documented By: Admin: 08/13/22 13:18 Dose: 2 gm Documented By: Admin: 08/13/22 05:37 Dose: 2 gm Documented By: Admin: 08/12/22 22:02 Dose: 2 gm Documented By: Admin: 08/12/22 14:48 Dose: 2 gm Documented By: EFREN Hydromorphone HCl (Hydromorphone 1 Mg/Ml Syringe) 1 mg IV Q2HP PRN; Protocol PRN Reason: Per Pain Protocol Last Admin: 08/14/22 13:25 Dose: 1 mg Documented By: Admin: 08/14/22 01:12 Dose: 1 mg Documented By: JUAN ANTONIO Admin: 08/13/22 17:56 Dose: 1 mg Documented By: Admin: 08/13/22 10:35 Dose: 1 mg Documented By: Admin: 08/13/22 04:30 Dose: 1 mg Documented By: Admin: 08/12/22 19:56 Dose: 1 mg Documented By: Admin: 08/12/22 14:50 Dose: 1 mg Documented By: EFREN Metronidazole (Flagyl) 500 mg in 100 mls @ 100 mls/hr IV Q6H GAVIOTA; Protocol Last Infusion: 08/18/22 13:23 Dose: 0 mls/hr Documented By: Admin: 08/18/22 11:59 Dose: 100 mls/hr Documented By: Infusion: 08/18/22 07:10 Dose: 0 mls/hr Documented By: Admin: 08/18/22 05:29 Dose: 100 mls/hr Documented By: Infusion: 08/18/22 01:06 Dose: 0 mls/hr Documented By: Admin: 08/18/22 00:06 Dose: 100 mls/hr Documented By: Infusion: 08/17/22 18:30 Dose: 0 mls/hr Documented By: Admin: 08/17/22 17:12 Dose: 100 mls/hr Documented By: Infusion: 08/17/22 15:22 Dose: 0 mls/hr Documented By: Admin: 08/17/22 12:09 Dose: 100 mls/hr Documented By: Infusion: 08/17/22 07:57 Dose: 0 mls/hr Documented By: Admin: 08/17/22 05:38 Dose: 100 mls/hr Documented By: Infusion: 08/17/22 01:00 Dose: 0 mls/hr Documented By: Admin: 08/17/22 00:00 Dose: 100 mls/hr Documented By: Infusion: 08/16/22 18:50 Dose: 0 mls/hr Documented By: Admin: 08/16/22 17:23 Dose: 100 mls/hr Documented By: Infusion: 08/16/22 14:19 Dose: 0 mls/hr Documented By: Admin: 08/16/22 12:05 Dose: 100 mls/hr Documented By: Infusion: 08/16/22 06:15 Dose: 0 mls/hr Documented By: Admin: 08/16/22 05:05 Dose: 100 mls/hr Documented By: Infusion: 08/16/22 00:39 Dose: 0 mls/hr Documented By: Admin: 08/15/22 23:32 Dose: 100 mls/hr Documented By: Infusion: 08/15/22 18:34 Dose: 0 mls/hr Documented By: Admin: 08/15/22 17:34 Dose: 100 mls/hr Documented By: Infusion: 08/15/22 15:00 Dose: 0 mls/hr Documented By: Admin: 08/15/22 11:42 Dose: 100 mls/hr Documented By: Infusion: 08/15/22 06:02 Dose: 0 mls/hr Documented By: Admin: 08/15/22 05:01 Dose: 100 mls/hr Documented By: Infusion: 08/15/22 00:22 Dose: 0 mls/hr Documented By: Admin: 08/14/22 23:23 Dose: 100 mls/hr Documented By: Infusion: 08/14/22 17:38 Dose: 0 mls/hr Documented By: Admin: 08/14/22 16:53 Dose: 100 mls/hr Documented By: Infusion: 08/14/22 12:49 Dose: 0 mls/hr Documented By: Admin: 08/14/22 11:49 Dose: 100 mls/hr Documented By: Infusion: 08/14/22 06:17 Dose: 0 mls/hr Documented By: Admin: 08/14/22 05:17 Dose: 100 mls/hr Documented By: JUAN ANTONIO Infusion: 08/14/22 00:36 Dose: 100 mls/hr Documented By: JUAN ANTONIO Admin: 08/13/22 23:36 Dose: 100 mls/hr Documented By: Infusion: 08/13/22 18:56 Dose: 0 mls/hr Documented By: [email or web address] Admin: 08/13/22 17:56 Dose: 100 mls/hr Documented By: [email or web address] Infusion: 08/13/22 12:43 Dose: 0 mls/hr Documented By: [email or web address] Admin: 08/13/22 11:43 Dose: 100 mls/hr Documented By: [email or web address] Infusion: 08/13/22 06:40 Dose: 0 mls/hr Documented By: [email or web address] Admin: 08/13/22 05:40 Dose: 100 mls/hr Documented By: Infusion: 08/13/22 00:44 Dose: 100 mls/hr Documented By: Admin: 08/12/22 23:32 Dose: 100 mls/hr Documented By: Infusion: 08/12/22 22:03 Dose: 100 mls/hr Documented By: Admin: 08/12/22 19:57 Dose: 100 mls/hr Documented By: Infusion: 08/12/22 16:24 Dose: 0 mls/hr Documented By: Admin: 08/12/22 15:24 Dose: 100 mls/hr Documented By: EFREN Acetaminophen (Ofirmev) 1,000 mg in 100 mls @ 200 mls/hr IV Q6H [facility] Admin: 08/18/22 13:23 Dose: 200 mls/hr Documented By: Infusion: 08/18/22 05:52 Dose: 0 mls/hr Documented By: Admin: 08/18/22 05:22 Dose: 200 mls/hr Documented By: Infusion: 08/17/22 23:40 Dose: 0 mls/hr Documented By: Admin: 08/17/22 23:04 Dose: 200 mls/hr Documented By: Infusion: 08/17/22 18:41 Dose: 0 mls/hr Documented By: Admin: 08/17/22 17:13 Dose: 200 mls/hr Documented By: Infusion: 08/17/22 13:23 Dose: 0 mls/hr Documented By: Admin: 08/17/22 12:09 Dose: 200 mls/hr Documented By: Infusion: 08/17/22 05:36 Dose: 0 mls/hr Documented By: Admin: 08/17/22 05:05 Dose: 200 mls/hr Documented By: Infusion: 08/16/22 23:51 Dose: 0 mls/hr Documented By: Admin: 08/16/22 23:21 Dose: 200 mls/hr Documented By: Infusion: 08/16/22 18:25 Dose: 0 mls/hr Documented By: Admin: 08/16/22 17:23 Dose: 200 mls/hr Documented By: Infusion: 08/16/22 12:57 Dose: 0 mls/hr Documented By: Admin: 08/16/22 12:05 Dose: 200 mls/hr Documented By: Infusion: 08/16/22 07:04 Dose: 0 mls/hr Documented By: Admin: 08/16/22 06:11 Dose: 200 mls/hr Documented By: Infusion: 08/16/22 01:10 Dose: 0 mls/hr Documented By: Admin: 08/16/22 00:38 Dose: 200 mls/hr Documented By: Infusion: 08/15/22 18:25 Dose: 0 mls/hr Documented By: Admin: 08/15/22 17:35 Dose: 200 mls/hr Documented By: Infusion: 08/15/22 12:18 Dose: 0 mls/hr Documented By: Admin: 08/15/22 11:41 Dose: 200 mls/hr Documented By: Infusion: 08/15/22 06:40 Dose: 0 mls/hr Documented By: Admin: 08/15/22 06:04 Dose: 200 mls/hr Documented By: Infusion: 08/15/22 00:55 Dose: 0 mls/hr Documented By: Admin: 08/15/22 00:25 Dose: 200 mls/hr Documented By: [email or web address] Infusion: 08/14/22 17:53 Dose: 0 mls/hr Documented By: Admin: 08/14/22 17:22 Dose: 200 mls/hr Documented By: Infusion: 08/14/22 13:19 Dose: 0 mls/hr Documented By: Admin: 08/14/22 12:49 Dose: 200 mls/hr Documented By: [email or web address] Infusion: 08/14/22 07:18 Dose: 0 mls/hr Documented By: [email or web address] Admin: 08/14/22 06:48 Dose: 200 mls/hr Documented By: [email or web address] Infusion: 08/14/22 01:38 Dose: 200 mls/hr Documented By: Admin: 08/14/22 01:08 Dose: 200 mls/hr Documented By: JUAN ANTONIO Infusion: 08/13/22 19:47 Dose: 200 mls/hr Documented By: Admin: 08/13/22 19:16 Dose: 200 mls/hr Documented By: CIRO Lidocaine (Lidocaine Patch) 1 patch TOPICAL DAILY@1000 [facility] Last Admin: 08/18/22 09:56 Dose: 1 patch Documented By: Admin: 08/17/22 09:03 Dose: 1 patch Documented By: Admin: 08/16/22 09:55 Dose: 1 patch Documented By: Admin: 08/15/22 09:19 Dose: 1 patch Documented By: Admin: 08/14/22 09:55 Dose: 1 patch Documented By: Admin: 08/13/22 10:27 Dose: 1 patch Documented By: Admin: 08/12/22 17:52 Dose: 1 patch Documented By: EFREN Metoclopramide HCl (Metoclopramide 10 Mg/2 Ml Vial) 10 mg IV Q6 [facility] Admin: 08/18/22 11:59 Dose: 10 mg Documented By: Admin: 08/18/22 05:22 Dose: 10 mg Documented By: Admin: 08/17/22 23:04 Dose: 10 mg Documented By: Admin: 08/17/22 17:12 Dose: 10 mg Documented By: Admin: 08/17/22 12:09 Dose: 10 mg Documented By: Admin: 08/17/22 05:04 Dose: 10 mg Documented By: Admin: 08/16/22 23:21 Dose: 10 mg Documented By: Admin: 08/16/22 17:23 Dose: 10 mg Documented By: Admin: 08/16/22 12:05 Dose: 10 mg Documented By: Admin: 08/16/22 06:03 Dose: 10 mg Documented By: Admin: 08/15/22 23:33 Dose: 10 mg Documented By: Admin: 08/15/22 17:34 Dose: 10 mg Documented By: Admin: 08/15/22 11:41 Dose: 10 mg Documented By: Admin: 08/15/22 05:45 Dose: 10 mg Documented By: Admin: 08/14/22 23:23 Dose: 10 mg Documented By: Admin: 08/14/22 17:22 Dose: 10 mg Documented By: ALE Ondansetron HCl (Ondansetron 4 Mg/2 Ml Vial) 4 mg IV Q6HP PRN PRN Reason: Nausea And Vomiting Last Admin: 08/15/22 05:01 Dose: 4 mg Documented By: Admin: 08/13/22 13:09 Dose: 4 mg Documented By: EFREN Pantoprazole Sodium (Pantoprazole 40 Mg Vial) 40 mg IV BIDAC [facility] Admin: 08/18/22 08:01 Dose: 40 mg Documented By: Admin: 08/17/22 17:12 Dose: 40 mg Documented By: Admin: 08/17/22 07:57 Dose: 40 mg Documented By: Admin: 08/16/22 17:23 Dose: 40 mg Documented By: Admin: 08/16/22 08:03 Dose: 40 mg Documented By: Admin: 08/15/22 17:34 Dose: 40 mg Documented By: ALEX Potassium/Phosphorus/Sodium (Neutra Phos 1 Packet) 2 packet PO BID [facility] Last Admin: 08/18/22 08:02 Dose: 2 packet Documented By: Admin: 08/17/22 20:08 Dose: 2 packet Documented By: Admin: 08/17/22 09:03 Dose: 2 packet Documented By: Admin: 08/16/22 21:29 Dose: 2 packet Documented By: YOLY Sodium Chloride (0.9 % Sodium Chloride 10 Ml Syringe) 10 ml IV Q8 [facility] Last Admin: 08/18/22 14:34 Dose: 10 ml Documented By: Admin: 08/18/22 05:29 Dose: 10 ml Documented By: Admin: 08/17/22 22:49 Dose: 10 ml Documented By: Admin: 08/17/22 15:10 Dose: 10 ml Documented By: Admin: 08/17/22 05:05 Dose: 10 ml Documented By: Admin: 08/16/22 21:32 Dose: Not Given Documented By: Admin: 08/16/22 14:41 Dose: 10 ml Documented By: Admin: 08/16/22 06:10 Dose: Not Given Documented By: Admin: 08/15/22 21:42 Dose: Not Given Documented By: Admin: 08/15/22 13:29 Dose: Not Given Documented By: Admin: 08/15/22 06:07 Dose: Not Given Documented By: Admin: 08/14/22 21:11 Dose: 10 ml Documented By: Admin: 08/14/22 14:17 Dose: Not Given Documented By: [email or web address] Admin: 08/14/22 06:29 Dose: Not Given Documented By: Admin: 08/13/22 20:31 Dose: Not Given Documented By: Admin: 08/13/22 13:19 Dose: Not Given Documented By: [email or web address] Admin: 08/13/22 04:11 Dose: Not Given Documented By: Admin: 08/12/22 20:02 Dose: Not Given Documented By: Admin: 08/12/22 14:36 Dose: Not Given Documented By: [email or web address] Shift Summary 08/18/22 04:32 Shift Summary by Beatriz Faye Primary Diagnosis: Colostomy takedown Registration Status: Date of Surgery (if applicable): 08/12/2022 Pertinent Medical Dx/Issue(s): Basal cell carcinoma, Dysuria, Urolithiasis, UTI (Chronic), Emphysema, HTN, Hypothyroidism, Macular Degeneration, Diverticulitis Med management (antibiotics, diuretics, BP): Flagyl, Maxipime, scheduled Reglan Skin/Wound Care: antifungal Powder Topically Abdominal Pannus, Midline Post Op Incision - Scant Shadow Drainage, LEONIDAS Drain Right abdomen, Post Ostomy Takedown Site LUQ Abdomen. Turning schedule. patient able to turn self- up to BSC frequently Vital Signs with Trends: Slight HTN and bradycardia O2, liter flow/saturations: Placed on 1L NC while sleeping- also desats with ambulation Pain management (acute vs. chronic): scheduled Ofirmev- no c/o pain, lidoderm patch Lab/Rad (abnormals, trends): Ca+ 8.3, phos 2.4- replaced with neutra phos Neuro/Mental Status: A&Ox4 pleasant and cooperative with cares Urinary Elimination Device: BSC Urinary output greater than 30mL/hr? Yes Date of last BM: 08/18/22- multiple loose Lines/Tubes: LEONIDAS drain RUQ Abdomen, IV right Forearm SL Activity: Up with SBA, ambulated in hallway x1 and used FWW, in room pt does not use FWW- out of breath during ambulation in hallway- checked O2 when back to room and desat to mid to low 80's Recommendations/questions for MD: Might need home O2 Discharge Plan (needs, disposition, etc): Home with family when medically stable. Diet advanced to Regular- patient tolerating well Initialized on 08/18/22 04:32 - END OF NOTE
--- NOTE | 2022-08-19 11:14 | Operative Note ---
DATE OF OPERATION: 08/12/2022 PREOPERATIVE DIAGNOSIS: Colostomy status. POSTOPERATIVE DIAGNOSES: Colostomy takedown, subacute pelvic inflammation, extensive intra-abdominal adhesions. PROCEDURE: Colostomy takedown. SURGEON: Tom Valladares M.D. FINDINGS: Extensive severe adhesions of the peritoneal cavity with subacute inflammation in the pelvis with intact rectal stump and no evidence of purulence. DESCRIPTION OF PROCEDURE: Under general anesthesia, the patient was prepped and draped in a sterile field. The stoma was sutured shut with 2-0 silk. The prep was repeated and a Vi-Drape was placed. A midline incision was made from the previous operation. There were extensive adhesions of the bowel to the underlying peritoneal surface. These adhesions were taken down with sharp dissection and Metzenbaum scissors. After entering the peritoneal cavity, dissection was extended to the pelvis. There was still some subacute inflammation of the bowel in the pelvis, but there was no overt purulence. The subacute inflammation was primarily dissected with finger fractionation. The rectal stump was identified. There was no evidence of purulence around the rectal stump. The abdomen was then packed off. The rectal stump was dissected free, taking care to preserve the vascular supply. Once it was prepared, the peritoneal cavity was decompressed and the bowel in the left lower quadrant was dissected until the bowel leading to the stoma was encountered. It was dissected circumferentially from the peritoneum. It was then dissected in the subcutaneous fat using finger fractionation. The stoma end was then incised, taking care not to disrupt the suture line. This dissection was carried down to the fascia and the bowel was delivered intact. The distal end was then transected using a RUDDY stapler. It was then doubly-stapled using the TA 60 stapler. The proximal sigmoid and the descending colon was then dissected up to the splenic flexure. This allowed more length for the bowel to rest comfortably in the pelvis. An end-to-side anastomosis suturing the end of the rectum to the side of the distal sigmoid was carried out. The posterior outer row was running 2-0 Prolene. Inner row circumferentially was running 2-0 Monocryl. Outer row anteriorly was carried out with a 2-0 Prolene. The anastomosis was inspected and was widely patent. A LEONIDAS drain was placed in the pelvis beneath the anastomosis, but not intact with the anastomosis. Irrigation was carried out. The fascial defect from the previous stoma was closed with running #1 Prolene. The peritoneum and fascia in the midline was closed with running #1 Prolene. The subcutaneous fascia was closed in two layers using running 2-0 Monocryl. Skin was closed with chloe. The incision was closed and attention was turned to the stomal opening. The anterior rectus fascia was reapproximated using running #1 Prolene. Subcutaneous fat was closed with 2-0 Monocryl. The skin was closed with interrupted [id number] 2-0 Prolene. The incisions were closed with Tegaderm. The patient was awakened, extubated, and transferred to the postanesthetic care unit in satisfactory condition. LCS:nakul Job ID: [id number] Doc ID: [id number] Tom Valladares M.D.
== END 2022-08-18 16:30 | disposition home or self-care (01) | DRG 345 ==
LOC: MEDSUR 04:54
PROVIDERS: ADMIT Family Medicine Adult Medicine; ATTEND Family Medicine Adult Medicine